=== PATIENT | male | born 1960 | race Caucasian/White ===

== ENCOUNTER 2021-11-21 09:00 | Outpatient (RCR) | payer BC, SELFPAY | END 2021-11-26 08:14 | disposition home or self-care (01) | LOC: PT.CARL 09:00 | PROVIDERS: PCP Family Medicine; Visit Provider Orthopaedic Surgery | DX: M70.62 Trochanteric bursitis, left hip (principal) | CPT/HCPCS: 97010; 97014; 97033; 97035; 97110; 97163; G0283 ==

== ENCOUNTER 2021-12-03 09:00 | Outpatient (RCR) | payer BC, SELFPAY | END 2022-01-08 14:15 | disposition home or self-care (01) | LOC: PT.CARL 09:00 | PROVIDERS: PCP Family Medicine; Visit Provider Podiatrist Foot & Ankle Surgery | DX: R20.2 Paresthesia of skin (principal); M24.572 Contracture, left ankle; M24.571 Contracture, right ankle | CPT/HCPCS: 97010; 97033; 97110; 97140; 97163 ==

== ENCOUNTER 2023-01-08 03:41 | Emergency (ER) | payer BC, SELFPAY ==
[2023-01-08] VITALS (8 sets, daily range): BP systolic 119–148; BP diastolic 48–78; PULSE 61–81; RESP 16–26; TEMP 36.6; O2SAT 90–98; BMI 35.9
--- NOTE | 2023-01-08 04:05 | CT_ITS ---
PROCEDURE INFORMATION: Exam: CT Abdomen And Pelvis With Contrast Exam date and time: 01/08/2023 4:44 AM Age: 62 years old Clinical indication: Abdominal pain; Additional info: Abd pain TECHNIQUE: Imaging protocol: Computed tomography of the abdomen and pelvis with contrast. Radiation optimization: All CT scans at this facility use at least one of these dose optimization techniques: automated exposure control; mA and/or kV adjustment per patient size (includes targeted exams where dose is matched to clinical indication); or iterative reconstruction. Contrast material: ISOVUE; Contrast volume: 75 ml; Contrast route: IV; REPORTING DATA: Count of CT and Cardiac NM exams in prior 12 months: This patient has received 0 known CTs and 0 known cardiac nuclear medicine studies in the 12 months prior to the current study. COMPARISON: No relevant prior studies available. FINDINGS: Liver: Liver is low in density. Gallbladder and bile ducts: Normal. No calcified stones. No ductal dilation. Pancreas: Normal. No ductal dilation. Spleen: Normal. No splenomegaly. Adrenal glands: Normal. No mass. Kidneys and ureters: Normal. No hydronephrosis. Stomach and bowel: Some focal areas of increased density are seen within the gastric lumen, this could represent extravasation of contrast but may simply represent radiodense ingested food. Sigmoid diverticulosis. Appendix: No evidence of appendicitis. Intraperitoneal space: Unremarkable. No free air. No significant fluid collection. Vasculature: Unremarkable. No abdominal aortic aneurysm. Lymph nodes: Unremarkable. No enlarged lymph nodes. Urinary bladder: Unremarkable as visualized. Reproductive: Unremarkable as visualized. Bones/joints: Unremarkable. No acute fracture. Soft tissues: Unremarkable. IMPRESSION: 1. No definite acute process noted. 2. Focal areas of increased opacity are seen within the gastric lumen these could represent extravasation of contrast / acute hemorrhage although they also may represent ingested radiodense food or medicines such as magnesium hydroxide etc. 3. Diffuse hepatic steatosis.
--- NOTE | 2023-01-08 04:06 | XR_ITS ---
PROCEDURE INFORMATION: Exam: XR Chest Exam date and time: 01/08/2023 4:44 AM Age: 62 years old Clinical indication: Patient HX: Upper abd pain radiating to chest; Additional info: Chest pain TECHNIQUE: Imaging protocol: Radiologic exam of the chest. Views: 1 view. COMPARISON: CT CERVICAL SPINE WO CON 08/02/2019 8:19 AM FINDINGS: Lungs: Unremarkable. No consolidation. Pleural spaces: Unremarkable. No pleural effusion. No pneumothorax. Heart/Mediastinum: Unremarkable. No cardiomegaly. Bones/joints: Unremarkable. IMPRESSION: No acute findings.
--- NOTE | 2023-01-08 04:13 | ECG_ITS ---
APPROVED REPORT Exam: Resting ECG HR:70 bpm ECG Measurements Heart Rate 70 AXES DE 180 P 51 QRSd 104 QRS 24 QT 402 T 36 QTc 423 Conclusion SINUS RHYTHM WITH SINUS ARRHYTHMIA LOW QRS VOLTAGE IN PRECORDIAL LEADS [QRS DEFLECTION < 1.0 mV IN CHEST LEADS] BORDERLINE ECG UNCONFIRMED REPORT Electronically signed by : Alexey Mariscal MD 01/09/2023 09:51:40
[2023-01-08 04:18] LABS: Basophils % 0.3 % (0.1-2.0); Eosinophils # 0.1 K/mm3 (0.0-0.4); Hematocrit 43.6 % (42.0-52.0); Hemoglobin 13.8 g/dL (14.1-18.0); Lymphocytes # 1.6 K/mm3 (0.7-4.5); Lymphocytes % 12.5 % (10-50); Mean Corpuscular HGB Conc 31.6 g/dL (31.8-35.4); Mean Corpuscular Volume 91.8 fl (80-94); Mean Platelet Volume 8.2 fl (7.4-10.4); Monocytes # 0.4 K/mm3 (0.1-1.0); Monocytes % 3.5 % (1.7-9.3); Neutrophils # 10.3 K/mm3 (1.8-7.8); Neutrophils % 82.7 % (37.0-80.0); Platelet Count 362 K/mm3 (142-424); Red Blood Count 4.75 M/mm3 (4.60-6.20); White Blood Count 12.4 K/mm3 (4.8-10.8)
[2023-01-08 04:21] LABS: Alanine Aminotransferase 390 U/L (12-78); Albumin Level 4.5 g/dl (3.5-5.0); Albumin/Globulin Ratio 1.6 (1.1-1.8); Alkaline Phosphatase 184 U/L (38-126); Amylase 84 U/L (30-110); Anion Gap 13.7 mEq/L (5-15); Aspartate Amino Transferase 477 U/L (17-59); Blood Urea Nitrogen 18 mg/dl (9-20); Calcium 9.4 mg/dl (8.4-10.2); Carbon Dioxide 32 mmol/L (22.0-30.0); Chloride 96 mmol/L (98-107); Creatinine Clearance Estimated 96 mL/min (50-200); Estimated Glomerular Filt Rate 62 ml/min (>60); GFR (African American) 75 ML/MIN (>60); Globulin 2.8 g/dL (1.3-3.2); Glucose 344 mg/dl (74-100); Lipase 162 U/L (23-300); Potassium 3.7 mmoL/L (3.5-5.1); Sodium 138 mmol/L (136-145); Total Protein,Serum 7.3 g/dl (6.3-8.2)
[2023-01-08 04:26] LABS: C-Reactive Protein 5.8 mg/L (0-4)
[2023-01-08 04:27] LABS: Lactic Acid 2.8 mmol/L (0.7-2.1)
--- NOTE | 2023-01-08 04:28 | HMH.EDABDPAI ---
Discharge Plan Disposition Patient Disposition: Home, Self-Care Chief Complaint: Abdominal Pain Prescriptions Prescriptions: No Action hydrochlorothiazide 25 mg tablet 25 mg PO DIRECTED Label Comments: TAKE 1 TABLET BY MOUTH EVERY DAY losartan 100 mg tablet 100 mg PO DIRECTED Label Comments: TAKE 1 TABLET BY MOUTH EVERY DAY metformin 500 mg tablet extended release 24 hr 500 mg PO DIRECTED Label Comments: TAKE 1 TABLET BY MOUTH EVERY DAY WITH BREAKFAST Referrals Follow up/Referrals: Provider,Referral, [Primary Care Provider] - See instructions Price Bhandari MD [Staff Physician] - See instructions Clinical Impressions Clinical Impression: Cholelithiasis Instructions Patient Instructions: DI for Gallstones Discharge ED Provider: Raman (ED),Randolph Vega Abdominal Pain HPI General Chief Complaint: Abdominal Pain Stated Complaint: Upper Abdominal Pain Time Seen by Provider: 01/08/23 04:00 Mode of Arrival: Ambulatory Source of Information: Patient and Medical Record Limitations: No Limitations Description of Symptoms (Recalled from ER Triage Doc. by RN): Pt states at 2am he started having severe upper gastric pain which he thought may be indigestion, took pepto bismol and tums with no relief. States the pain is radiating into chest and back a this time. History of Present Illness HPI narrative: acute onset of upper abd pain with nausea which started last am complaint: abdominal pain Onset (ago): hour(s) Consistency: intermittent Location: RUQ and epigastric Severity: severe Quality: sharp Radiation: RUQ Associated symptoms: denies other symptoms Treatments prior to arrival: antacids Related Data Home Medications Medication Instructions Recorded Confirmed hydrochlorothiazide 25 mg tablet 25 mg PO DIRECTED Hypertension 01/08/23 01/08/23 losartan 100 mg tablet 100 mg PO DIRECTED Cholesterol 01/08/23 01/08/23 metformin 500 mg tablet,extended 500 mg PO DIRECTED Diabetes 01/08/23 01/08/23 release 24 hr Allergies Allergy/AdvReac Type Severity Reaction Status Date / Time erythromycin base Allergy Unknown Verified 08/02/19 08:02 [From E-MYCIN] penicillin G [PENICILLIN G] Allergy Unknown Verified 08/02/19 08:02 tetracycline [TETRACYCLINE] Allergy Unknown Verified 08/02/19 08:02 [facility] Disclaimer: The information contained in this section may have been updated after the patient was seen, as this information can be updated by other users. Social History Smoking Status: Never smoker alcohol intake: never current occupational status: employed Travel in the last 8 weeks: None ROS Obtained: Yes All systems reviewed & no additional complaints except as documented Physical Exam General General appearance: alert Head Head exam: normocephalic Eye Eye exam: Present PERRL and EOMI; Absent scleral icterus ENT ENT exam: Present mucous membranes moist Neck Neck exam: Present trachea midline Respiratory Respiratory exam: Absent respiratory distress Cardiovascular Cardiovascular exam: Present regular rate; Absent systolic murmur Abdominal Exam Abdominal exam: Present soft, tenderness and Marinelli's sign; Absent guarding or rebound Abdominal tenderness: Present RUQ and moderate Neurological Exam Neurological exam: Present alert, oriented X3 and CN II-XII intact; Absent motor sensory deficit Psychiatric Psychiatric exam: Present normal affect Skin Skin exam: Absent rash Medical Decision Making Medical Records Medical records reviewed: Yes I reviewed the patient's medical records. Fabricio Inquiry Pt receiving controlled substance: No Vital Signs: 01/08/23 03:44 01/08/23 04:31 01/08/23 05:01 Temperature 98 F Temperature Source Oral Pulse Rate 77 74 Pulse Rate [Right] 72 Respiratory Rate 26 H 18 20 Blood Pressure 131/70 126/58 L Blood Pressure [Right Arm] 139/73 Blood Pressure Mean 92 82 Blood Press
--- NOTE | 2023-01-08 04:39 | PC.NURSE ---
pt to ct scan
[2023-01-08 05:38] LABS: Erythrocyte Sedimentation Rate 21 mm/hr (0-20)
--- NOTE | 2023-01-08 06:11 | US_ITS ---
FINAL REPORT CLINICAL HISTORY: elevated ast/alt, upper abd pain COMPARISON: None FINDINGS: Sonographic images of the right upper quadrant were obtained. The pancreas is partially obscured. The liver is fatty infiltrated. The portal vein is dilated to 15 mm; portal hypertension not excluded. Several stones are seen in the gallbladder. Common duct is 6 mm, within normal limits. Limited images of the right kidney are unremarkable. IMPRESSION: Cholelithiasis. Fatty liver. Somewhat dilated portal vein, portal hypertension not excluded. Reviewed, Interpreted and Dictated by Moose Esqueda III, MD Transcribed by Xochilt Moon Authenticated and [facility]
[2023-01-08 06:15] LABS: Acetone, Serum (Rapid) None Detected (None Detect)
[2023-01-08 07:01] LABS: Hemoglobin A1C 8.3 % (4.0-6.0)
--- NOTE | 2023-01-08 07:39 | PC.NURSE ---
Patient to US
[2023-01-08 07:46] LABS: Microscopic, Urine URINE MICROSCOPIC (MICROSCOPIC)
[2023-01-08 07:47] LABS: Appearance,Urine CLEAR (Clear); Bilirubin,Urine Negative (Negative); Blood, Urine Negative (Negative); Color,Urine YELLOW (Yellow); Glucose,Urine (UA) 3+ (Negative); Ketones,Urine Negative (Negative); Leukocyte Esterase,Urine Negative (Negative); Nitrate,Urine POSITIVE (Negative); Protein,Urine Negative (Negative); Specific Gravity, Urine 1.015 (1.005-1.030)
[2023-01-08 08:12] LABS: Reflex Lactic Add Lactic Reflex
[2023-01-08 08:14] LABS: Bacteria,Urine 3+ /lpf; RBC,Urine Occasional #/hpf (0-3)
--- NOTE | 2023-01-08 08:22 | PC.NURSE ---
Dr. Camargo speaking with Dr. Bhandari
== END 2023-01-08 09:01 | disposition home or self-care (01) ==
PROVIDERS: Emergency Provider Emergency Medicine
DX: K80.20 Calculus of gallbladder without cholecystitis without obstruction (principal); R10.10 Upper abdominal pain, unspecified; R74.01 Elevation of levels of liver transaminase levels; R11.0 Nausea; E11.65 Type 2 diabetes mellitus with hyperglycemia; Z79.84 Long term (current) use of oral hypoglycemic drugs; R74.02 Elevation of levels of lactic acid dehydrogenase [LDH]; B96.89 Other specified bacterial agents as the cause of diseases classified elsewhere
CPT/HCPCS: 71045; 74177; 76705; 80053; 81001; 82009; 82150; 83036; 83605; 83690; 85025; 85651; 86140; 87086; 87088; 87186; 93005; 96361; 96374; 96375; 99285; J2405; Q9967

== ENCOUNTER → 2023-01-15 10:57 | Outpatient (CLI) | payer BC, SELFPAY ==
[2023-01-15 11:28] LABS: Basophils % 0.3 % (0.1-2.0); Eosinophils # 0.1 K/mm3 (0.0-0.4); Eosinophils % 1.2 % (0.1-12.0); Hematocrit 44.4 % (42.0-52.0); Hemoglobin 14.1 g/dL (14.1-18.0); Lymphocytes # 1.1 K/mm3 (0.7-4.5); Lymphocytes % 9.7 % (10-50); Mean Corpuscular HGB Conc 31.7 g/dL (31.8-35.4); Mean Corpuscular Hemoglobin 28.9 pg (27.0-31.2); Mean Corpuscular Volume 91.2 fl (80-94); Mean Platelet Volume 7.9 fl (7.4-10.4); Monocytes # 0.4 K/mm3 (0.1-1.0); Monocytes % 3.6 % (1.7-9.3); Neutrophils # 9.9 K/mm3 (1.8-7.8); Neutrophils % 85.2 % (37.0-80.0); Platelet Count 403 K/mm3 (142-424); Red Blood Count 4.87 M/mm3 (4.60-6.20); Red Cell Distribution Width 13.1 % (11.5-17.5); White Blood Count 11.6 K/mm3 (4.8-10.8)
[2023-01-15 11:33] LABS: MANUAL DIFFERENTIAL MANUAL DIFFERENTIAL (MANUAL DIFF)
[2023-01-15 11:34] LABS: Alanine Aminotransferase 503 U/L (12-78); Albumin Level 4.3 g/dl (3.5-5.0); Albumin/Globulin Ratio 1.2 (1.1-1.8); Alkaline Phosphatase 317 U/L (38-126); Amylase 772 U/L (30-110); Anion Gap 22.6 mEq/L (5-15); Aspartate Amino Transferase 360 U/L (17-59); Bilirubin,Total 5.1 mg/dl (0.2-1.3); Blood Urea Nitrogen 67 mg/dl (9-20); Calcium 8.4 mg/dl (8.4-10.2); Carbon Dioxide 23 mmol/L (22.0-30.0); Chloride 90 mmol/L (98-107); Creatine Kinase 55 U/L (55-170); Estimated Glomerular Filt Rate 9 ml/min (>60); GFR (African American) 10 ML/MIN (>60); Globulin 3.5 g/dL (1.3-3.2); Glucose 223 mg/dl (74-100); Potassium 3.6 mmoL/L (3.5-5.1); Sodium 132 mmol/L (136-145); Total Protein,Serum 7.8 g/dl (6.3-8.2)
[2023-01-15 11:45] LABS: CKMB Relative Index 0.9 U/L (0-4.0); Creatine Kinase MB 0.5 ng/ml (0.0-2.03)
[2023-01-15 11:54] LABS: Troponin I < 0.01 ng/ml (0.00-0.034)
[2023-01-15 12:01] LABS: Lipase 16401 U/L (23-300)
[2023-01-15 13:30] LABS: Lymphocytes % 9 % (10-50); Monocytes % 5 % (2-9); Neutrophils % 86 % (42-76); Platelet Estimate Normal; RBC Morphology Normal; Total Cells Counted 100
== END ==
PROVIDERS: Visit Provider Surgery
DX: Z01.812 Encounter for preprocedural laboratory examination (principal); K80.20 Calculus of gallbladder without cholecystitis without obstruction
CPT/HCPCS: 36415; 80053; 82150; 82550; 82553; 83690; 84484; 85007; 85025

== ENCOUNTER 2025-01-18 09:20 | Outpatient (CLI) | payer OTHER, SELFPAY ==
[2025-01-18 17:55] LABS: Alanine Aminotransferase 85 U/L (12-78); Albumin Level 4.8 g/dl (3.5-5.0); Albumin/Globulin Ratio 2.0 (1.1-1.8); Alkaline Phosphatase 122 U/L (38-126); Anion Gap 23.5 mEq/L (5-15); Aspartate Amino Transferase 39 U/L (17-59); Bilirubin,Total 0.6 mg/dl (0.2-1.3); Blood Urea Nitrogen 24 mg/dl (9-20); Calcium 9.8 mg/dl (8.4-10.2); Carbon Dioxide 22 mmol/L (22.0-30.0); Chloride 98 mmol/L (98-107); Cholesterol 209 mg/dl (140-200); Creatinine,Serum 1.20 mg/dl (0.66-1.25); Estimated Glomerular Filt Rate 61 ml/min (>60); GFR (African American) 74 ML/MIN (>60); Globulin 2.4 g/dL (1.3-3.2); Glucose 125 mg/dl (74-100); HDL Cholesterol 42 mg/dl (40-60); Potassium 4.5 mmoL/L (3.5-5.1); Sodium 139 mmol/L (136-145); Total Protein,Serum 7.2 g/dl (6.3-8.2); Triglycerides 121 mg/dl (30-150)
[2025-01-18 18:24] LABS: Thyroid Stimulating Hormone 2.31 uIU/mL (0.465-4.68)
[2025-01-18 19:42] LABS: Hepatitis C Ab Qual. W/ RFX NEGATIVE (Negative)
--- OUTSIDE RECORDS SUMMARY | 2025-01-19 10:05 | XMS_ITS | Clinical Summary ---
Author Organization Healthcare Address [address] [place] [address] Care Team Providers Care Auto Tire Recapper Name Role Phone Mikie Mata Primary Care Provider [phone] Allergies Active Allergy Reactions Criticality Noted Date Comments Erythromycin Hives Medium 12/26/2015 Hydrocodone-Acetaminophen Itching Medium 01/20/2023 Penicillins Hives Medium 12/26/2015 Tetracyclines & Related Hives Medium 12/26/2015 Medications hydroCHLOROthia zide (HYDRODiuril) 25 MG tablet Take 1 tablet (25 mg) by mouth 1 (one) time each day. Active losartan (Cozaar) 100 MG tablet Take 1 tablet (100 mg) by mouth 1 (one) time each day. Active metFORMIN XR (Glucophage-XR) 500 MG 24 hr tablet Take 2 tablets (1,000 mg) by mouth 2 (two) times a day. Do not crush, chew, or split. Active famotidine (Pepcid) 20 MG tablet Take 1 tablet (20 mg) by mouth 1 (one) time each day. Active methocarbamol (Robaxin) 500 MG tablet Take 1 tablet (500 mg) by mouth 4 (four) times a day for 10 days. 40 tablet 01/21/2023 Active Active Problems Problem Noted Date Diagnosed Date Hyperglycemia 01/17/2023 Overview (01/17/2023): On SSI Anemia 01/17/2023 Overview (01/17/2023): POA Stable, will continue to monitor Complicates all aspects of care CHRISTAL (obstructive sleep apnea) 01/16/2023 Gastroesophageal reflux disease 01/16/2023 HTN (hypertension) 01/15/2023 Overview (01/15/2023): Complicates care Obesity (BMI 30.0-34.9) 01/15/2023 Overview (01/15/2023): Complicates care Diabetes mellitus, type 2 01/15/2023 Overview (01/15/2023): Complicates care Resolved Problems Problem Noted Date Diagnosed Date Resolved Date Acute kidney injury 01/17/2023 01/22/20 Overview (01/17/2023): IV fluids, PO intake Will continue to monitor Gallstone pancreatitis 01/15/202301/21 Overview (01/15/2023): -Consult GI for ERCP -cholecystectomy post ERCP -trend labs Transaminitis 01/15/2023 01/21/2023 Overview (01/15/2023): Trend labs Hyponatremia 01/15/2023 01/21/2023 Overview (01/15/2023): Trend labs Choledocholithiasis 01/15/2023 01/22/20 Family History Medical History Relation Name Comments Alcohol abuse Mother Shahla Anesthesia problems Neg Hx Malig Hyperthermia Neg Hx Relation Name Status Comments Mother Shahla Social History Tobacco Use Types Packs/Day Years Used Date Smoking Tobacco: Never Smokeless Tobacco: Never Tobacco Cessation:Counseling Given: Not Answered Alcohol Use Standard Drinks/Week Comments Not Currently 0 (1 standard drink = 0.6 oz pur e alcohol) PHQ-2 Answer Date Recorded Patient Health Questionnaire-2 Score 0 03/13/2023 PHQ-2A Answer Date Recorded Patient Health Questionnaire-2 Score 0 03/13/2023 Sex and Gender Information Value Date Recorded Sex Assigned at Male 01/20/2023 2:12 PM EDT Legal Sex Male 8:46 PM EDT Gender Identity Male 01/20/2023 2:12 PM EDT Sexual Orientation Not on file Last Filed Vital Signs Vital Sign Reading Time Taken Comments Blood Pressure 118/76 04/25/2023 9:45 AM EDT Pulse 58 04/25/2023 9:45 AM EDT Temperature 36.3 C (97.4 F) 04/25/2023 9:00 AM EDT Respiratory Rate 13 04/25/2023 9:45 AM EDT Oxygen Saturation 99% 04/25/2023 9:45 AM EDT Inhaled Oxygen Concentration - - Weight 97.7 kg (215 lb 6.2 oz) 04/25/2023 8:02 A M EDT Height 172.7 cm (5' 8 ) 04/25/2023 8:02 AM EDT Body Mass Index 32.75 04/25/2023 8:02 AM EDT Plan of Treatment Health Maintenance Due Date Last Done Comments [facility]-/Child/Adol SDOH Screenings 1962 Diabetes: Dental Exam 1972 [facility]- SDOH Screenings 1980 [facility]-Adult SDOH Screenings 1980 [facility]-DTaP,Tdap,and Td Vaccines (1 - Tdap) 1981 CT Colonography 2007 Colonoscopy 2007 FIT-DNA 2007 FIT 2007 FOBT 2007 Sigmoidoscopy 2007 [facility]-Colorectal Cancer Screening 2007 [facility]-Diabetes: Hemoglobin A1C 11/12/2021 05/15/2021 [facility]-Pneumococcal Vaccine: 50+ Years (2 of 2 - PCV) 01/30/2022 01/30/2021 [facility]-Depression Screening 03/13/2024 03/13/2023 [id number]-42 Vaccine ( - 2023- season) 2024 06/21/2021, 10/26/2020, 09/28/2020 [facility]-Influenza Vaccine (#1) 03/14/202507/10, 05/02/2021, 06/15/2020, Additional history exists [facility]-RSV Vaccine: 60+ Years or (1 - 1-dose 75+ series) 2037 [facility]-Zoster Vaccines Completed 08/10/2021, [facility]-HIV Screening Completed 01/15/2023 [facility]-Hepatitis C Screening Completed 01/15/2023, [facility]-Obesity Intervention Completed 03/13/2023 HPV Vaccines Aged Out No longer eligi ble based on patient's age to complete this topic [facility]-HIB Vaccines Aged Out No longer e ligible based on patient's age to complete this topic [facility]-Hepatitis A Vaccines Aged Out No longer eligible based on patient's age to complete this topic [facility]-IPV Vaccines Aged Out No longer e ligible based on patient's age to complete this topic [facility]-Rotavirus Vaccines Aged Out No lo nger eligible based on patient's age to complete this topic Medical Devices Implanted Type Area Pharmaceutical Engineer Device Identifier Shelf Expiration Date Model / Serial / Lot Stent Biliary Covered 10 X 40 Wallflex - [id number] Implanted:Qty: 1 on 01/16/2023 by Wang Stacy MD at [facility] [id number] 09/25/2024 [id number] / / [id number] Stent Zimmon 7fr X 7cm - [id number] Implanted:Qty: 1 on 01/16/2023 by Wang Stacy MD at [facility] [id number] 09/11/2025 [id number] / / [id number] Procedures Procedure Name Priority Date/Time Associated Diagnosis Comments HEPATITIS C ANTIBODY - ED W/REFLEX TO HCV QUANT PCR STAT 01/15/2023 2:41 PM EDT HIV 1/2 ANTIBODY/ANTIGEN SCREEN WITH REFLEX TO HIV I/II DIFFERENTIATION STAT 01/15/2023 2:41 PM EDT from Last 3 Months or Most Recently Relevant to Health Maintenance Results * HIV 1 & 2 Antibody/Antigen Screen (01/15/2023 2:41 PM EDT) HIV 1 & 2 Antibody/Antigen Screen Non Reactive Non Reactive 01/15/2023 5:17 PM EDT [facility] Comment:Screening for HIV 1 & 2 antibodies, and P24 antigen is NONREACTIVE. No confirmatory testing is required. Blood Venous blood specimen / Unknown Venipuncture / Unknown 01/15/2023 2:41 PM EDT 01/15/2023 2:50 PM EDT Julio Zamora MD LAB BLOOD ORDERABLES Final Result Performing Organization Address City/[facility]/ZIP Co de Phone Number [facility] [address] [place] [address] * Hepatitis C Antibody - ED (01/15/2023 2:41 PM EDT) Hepatitis C Antibody Negative Negative 01/15/2023 3:45 PM EDT [facility] Blood Venous blood specimen / Unknown Venipuncture / Unknown 01/15/2023 2:41 PM EDT 01/15/2023 3:00 PM EDT Julio Zamora MD LAB BLOOD ORDERABLES Final Result Performing Organization Address City/[facility] Co de Phone Number [facility] [address] [place] [address] from Last 3 Months or Most Recently Relevant to Health Maintenance Insurance ANTH Advance Directives * Full Code (Latest Code Status on File) Date Activated Date Inactivated Comments 01/15/2023 6:37 PM 01/21/2023 5:02 PM Question Answer Comments Patient has decision-making capacity? Yes Care Teams Auto Tire Recapper Relationship Specialty Start Date End Date Mikie Mata DO [address] [address] PCP - General 01/15/23
[2025-01-20 08:13] LABS: Hepatitis B Surface Antigen Negative (Negative)
== END 2025-01-18 23:59 | disposition home or self-care (01) ==
LOC: LAB.DROPOF 01-19 09:56
PROVIDERS: PCP Family Medicine; Visit Provider Family Medicine
DX: E11.9 Type 2 diabetes mellitus without complications (principal); I10 Essential (primary) hypertension; Z11.59 Encounter for screening for other viral diseases; Z11.4 Encounter for screening for human immunodeficiency virus [HIV]
CPT/HCPCS: 80053; 80061; 84443; 86803; 87340; 87389

== ENCOUNTER 2025-01-19 14:20 | Outpatient (CLI) | payer OTHER, SELFPAY ==
--- OUTSIDE RECORDS SUMMARY | 2025-01-19 14:22 | XMS_ITS | Clinical Summary ---
Author Organization Healthcare Address [address] [place] [address] Care Team Providers Care Braid Folder Name Role Phone Mikie Mata Primary Care Provider [phone] Allergies Active Allergy Reactions Criticality Noted Date [...] PCV) 01/30/2022 01/30/2021 [facility]-Depression Screening 03/13/2024 03/13/2023 [id number] Vaccine ( - 2023- season) 2024 06/21/2021, [...] this topic Medical Devices Implanted Type Area Side Stapler Device Identifier Shelf Expiration Date Model / Serial / Lot Stent Biliary Covered 10 X 40 Wallflex - [id number] Implanted:Qty: 1 on 01/16/2023 by Wang Stacy MD at [facility] [id number] 09/25/2024 [id number] / / [id number] Stent Zimmon 7fr X 7cm - [id number] Implanted:Qty: 1 on 01/16/2023 by Wang Stacy MD at [facility] [id number] 09/11/2025 [id number] / / [id number] Procedures Procedure Name Priority Date/Time Associated Diagnosis [...] Reactive Non Reactive 01/15/2023 5:17 PM EDT [facility] Comment:Screening for HIV 1 & 2 antibodies, and P24 antigen is NONREACTIVE. No confirmatory testing is required. Blood Venous blood specimen / Unknown Venipuncture / Unknown 01/15/2023 2:41 PM EDT 01/15/2023 2:50 PM EDT Julio Zamora MD LAB BLOOD ORDERABLES Final Result Performing Organization Address City/[facility]/ZIP Co de Phone Number [facility] [address] [place] [address] * Hepatitis C Antibody - ED (01/15/2023 2:41 PM EDT) Hepatitis C Antibody Negative Negative 01/15/2023 3:45 PM EDT [facility] Blood Venous blood specimen / Unknown Venipuncture / Unknown 01/15/2023 2:41 PM EDT 01/15/2023 3:00 PM EDT Julio Zamora MD LAB BLOOD ORDERABLES Final Result Performing Organization Address City/[facility] Co de Phone Number [facility] [address] [place] [address] from Last 3 Months or Most Recently Relevant to Health Maintenance Insurance ANTH Advance Directives * Full Code (Latest Code Status on File) Date Activated Date Inactivated Comments 01/15/2023 6:37 PM 01/21/2023 5:02 PM Question Answer Comments Patient has decision-making capacity? Yes Care Teams Braid Folder Relationship Specialty Start Date End Date Mikie Mata DO [address] [address] PCP - General 01/15/23
--- NOTE | 2025-01-19 14:27 | XR_ITS ---
FINAL REPORT CLINICAL HISTORY: low back pain COMPARISON: None FINDINGS: 3 views of the lumbar spine were obtained. There is no evidence of fracture. There is no malalignment. The vertebrae are normal in height. There is moderate disc space narrowing at L5-S1. Mild anterior osteophyte formation is noted L1-2 through L4-5. There is moderate facet sclerosis in the lower lumbar spine. No paraspinous soft tissue abnormalities identified. IMPRESSION: Degenerative/chronic changes without acute bony abnormality. Reviewed, Interpreted and Dictated by Ty Wiley MD Transcribed by Xochilt Moon Authenticated and [facility]
[2025-01-19 15:17] LABS: Hematocrit 41.3 % (42.0-52.0); Hemoglobin 14.1 g/dL (14.1-18.0); Immature Granulocytes % 0.3 %; Mean Corpuscular HGB Conc 34.1 g/dL (31.8-35.4); Mean Corpuscular Hemoglobin 29.7 pg (27.0-31.2); Mean Corpuscular Volume 86.9 fl (80-94); Nucleated Red Blood Cells % 0 %; Platelet Count 289 K/mm3 (142-424); Red Blood Count 4.75 M/mm3 (4.60-6.20); Red Cell Distribution Width-SD 38.8 fL; White Blood Count 8.8 K/mm3 (4.8-10.8)
[2025-01-19 17:04] LABS: Hemoglobin A1C 8.9 % (4.0-6.0)
== END 2025-01-19 23:59 | disposition home or self-care (01) ==
LOC: RAD 14:20
PROVIDERS: PCP Family Medicine; Visit Provider Family Medicine
DX: M51.360 Other intervertebral disc degeneration, lumbar region with discogenic back pain only (principal); E11.9 Type 2 diabetes mellitus without complications; I10 Essential (primary) hypertension
CPT/HCPCS: 36415; 72100; 83036; 85025

== ENCOUNTER 2025-02-13 10:15 | Emergency (ER) | payer OTHER, SELFPAY ==
[2025-02-13] VITALS (13 sets, daily range): BP systolic 94–144; BP diastolic 55–77; PULSE 113–127; RESP 13–27; TEMP 37.2; O2SAT 91–96; BMI 35.2
--- OUTSIDE RECORDS SUMMARY | 2025-02-13 10:33 | XMS_ITS | Clinical Summary ---
Author Organization Healthcare Address [address] [place] [address] Care Team Providers Care Door Fitter Name Role Phone Mikie Mata Primary Care Provider [phone] Allergies Active Allergy Reactions Criticality Noted Date [...] PCV) 01/30/2022 01/30/2021 [facility]-Depression Screening 03/13/2024 03/13/2023 [id number] Vaccine ( - 2023- season) 2024 06/21/2021, [...] this topic Medical Devices Implanted Type Area Painter Interior Finish Device Identifier Shelf Expiration Date Model / Serial / Lot Stent Biliary Covered 10 X 40 Wallflex - [id number] Implanted:Qty: 1 on 01/16/2023 by Wang Stacy MD at [facility] [id number] 09/25/2024 [id number] / / [id number] Stent Zimmon 7fr X 7cm - [id number] Implanted:Qty: 1 on 01/16/2023 by Wang Stacy MD at [facility] [id number] 09/11/2025 [id number] / / [id number] Procedures Procedure Name Priority Date/Time Associated Diagnosis [...] Reactive Non Reactive 01/15/2023 5:17 PM EDT [facility] Comment:Screening for HIV 1 & 2 antibodies, and P24 antigen is NONREACTIVE. No confirmatory testing is required. Blood Venous blood specimen / Unknown Venipuncture / Unknown 01/15/2023 2:41 PM EDT 01/15/2023 2:50 PM EDT Julio Zamora MD LAB BLOOD ORDERABLES Final Result Performing Organization Address City/[facility]/ZIP Co de Phone Number [facility] [address] [place] [address] * Hepatitis C Antibody - ED (01/15/2023 2:41 PM EDT) Hepatitis C Antibody Negative Negative 01/15/2023 3:45 PM EDT [facility] Blood Venous blood specimen / Unknown Venipuncture / Unknown 01/15/2023 2:41 PM EDT 01/15/2023 3:00 PM EDT Julio Zamora MD LAB BLOOD ORDERABLES Final Result Performing Organization Address City/[facility] Co de Phone Number [facility] [address] [place] [address] from Last 3 Months or Most Recently Relevant to Health Maintenance Insurance ANTH Advance Directives * Full Code (Latest Code Status on File) Date Activated Date Inactivated Comments 01/15/2023 6:37 PM 01/21/2023 5:02 PM Question Answer Comments Patient has decision-making capacity? Yes Care Teams Door Fitter Relationship Specialty Start Date End Date Mikie Mata DO [address] [address] PCP - General 01/15/23
--- OUTSIDE RECORDS SUMMARY | 2025-02-13 10:33 | XMS_ITS | Clinical Summary ---
[facility] Address [address] [place] [address] Care Team Providers Care Director Dietetics Department Name Role Phone Mikie Mata Primary Care Provider [phone] Allergies Active Allergy Reactions Criticality Noted Date Comments Erythromycin Hives Medium 12/26/2015 Hydrocodone-Acetaminophen Itching Medium 01/20/2023 Penicillins Hives Medium 12/26/2015 Tetracyclines & Related Hives Medium 12/26/2015 Medications aspirin 81 MG chewable tablet Chew 1 tablet Daily. Active famotidine (PEPCID) 20 MG tablet Take 1 tablet by mouth Daily. Active clotrimazole-bet amethasone (Lotrisone) 1-0.05 % creamIndications :Rash of foot Apply 1 Application topically to the appropriate area as directed 2 (Two) Times a Day. 45 g 1 4 Active losartan (COZAAR) 100 MG tabletIndication s:Essential hypertension Take 1 tablet by mouth Daily. 90 tablet 3 4 Active hydroCHLOROthiaz sekou 25 MG tabletIndication s:Primary hypertension,Hyp ertension, unspecified type Take 1 tablet by mouth Daily. 90 tablet 1 5 Active meloxicam (MOBIC) 15 MG tabletIndication s:Trochanteric bursitis of left hip 1 PO Daily with food. 90 tablet 1 5 Active Active Problems Problem Noted Date Diagnosed Date Healthcare maintenance 10/01/2022 Cramps of left lower extremity 08/10/2021 Conjunctival hemorrhage of left eye 08/10/2021 Left hip pain 05/25/2021 Shortness of breath 05/25/2021 Plantar fasciitis 01/30/2021 Type 2 diabetes mellitus wit h hypoglycemia without coma, with long-term current use of insulin 01/30/2021 Skin lesion 01/30/2021 Gastroesophageal reflux disease without esophagi tis 01/30/2021 Allergic rhinitis 04/08/2017 Obesity 04/08/2017 Benign prostatic hyperplasia 12/26/2015 Hyperlipidemia 12/26/2015 Hypertension 12/26/2015 Obstructive sleep apnea syndrome 12/26/2015 Osteoarthritis of hip 12/26/2015 Type 2 diabetes, diet controlled 12/26/2015 Resolved Problems Problem Noted Date Diagnosed Date Resolved Date Hypertensive urgency 05/16/2021 021 Chest pain 05/15/2021 05/16/2021 Immunizations Immunization Administration Dates Next Due COVID-19 (MODERNA) 1st,2nd,3 rd Dose Monovalent 06/21/2021,10/26/2020,09/28/2020 COVID-19 (UNSPECIFIED) 06/21/2021,10/26/2020, Flu Vaccine Intradermal Quad 18-64YR 05/02/2021, 06/15/2020,04/26/2019 Flu Vaccine Quad PF 6-35MO 05/02/2021 Flu Vaccine Quad PF >36MO 06/15/2020 Fluzone (or Fluarix & Flulav al for VFC) >6mos 05/05/2023,07/10/2022,06/14/2020 Influenza Injectable Mdck Pf Quad 07/10/2022,,04/26/2019 Influenza Split Preservative Free ID 07/10/2022 Influenza, Unspecified 05/02/2021,04/26/2019 Pneumococcal Conjugate 20-Valent (PCV20) 024 Pneumococcal Polysaccharide (PPSV23) 01/30/2021 Shingrix 08/10/2021,05/08/2021 Family History Medical History Relation Name Comments COPD Brother Timothy Viera Cancer Father Oren Viera Lung cancer Father Oren Viera No Known Problems Maternal Grandfather No Known Problems Maternal Grandmother Arthritis Mother Shahla Viera Cancer Mother Shahla Viera Diabetes type II Mother Shahla Viera Lung cancer Mother Shahla Viera No Known Problems Paternal Grandfather No Known Problems Paternal Grandmother Relation Name Status Comments Brother Timothy Viear Alive Father Oren Viera Maternal Grandfather Maternal Grandmother Mother Shahla Viera Paternal Grandfather Paternal Grandmother Social History Tobacco Use Types Packs/Day Years Used Date Smoking Tobacco: Never Passive Smoke Exposure: Never Smokeless Tobacco: Never Alcohol Use Standard Drinks/Week Comments Not Currently 1 (1 standard drink = 0.6 oz pur e alcohol) occasional wine PHQ-2 Answer Date Recorded Retired PHQ-9: Brief Depression Severity Measure Score 0 08/28/2022 Abuse Screen Answer Date Recorded Unsafe at Home or Work/School Not on file Feels Threatened by Someone? Not on file 03/2023 Does Anyone Keep You from Co ntacting Others or Doint Things Outside the Home? Not on file 04/21/2023 Physical Sign of Abuse Present Not on file 1 Housing Stability Answer Date Recorded Current Living Arrangements Not on file 03/2023 Potentially Unsafe Housing Conditions Not on janeth e 04/21/2023 Family and Community Support Answer Bo e Recorded Help with Day-to-Day Activities Not on file 04/21/2023 Lonely or Isolated Not on file 04/21/2023 Employment Answer Date Recorded Do you want help finding or keeping work or a cassidy b? Not on file 04/21/2023 Disabilities Answer Date Recorded Concentrating, Remembering, or Making Decisions Difficulty Not on file 04/21/2023 Doing Errands Independently Difficulty Not on fi le 04/21/2023 Education Answer Date Recorded Help with school or training? Not on file Preferred Language Not on file 04/21/2023 PHQ-2 Answer Date Recorded Retired PHQ-9: Brief Depression Severity Measure Score 0 09/05/2023 Sex and Gender Information Value Date Recorded Sex Assigned at Not on file Legal Sex Male 10:14 AM EDT Gender Identity Not on file Sexual Orientation Not on file Last Filed Vital Signs Vital Sign Reading Time Taken Comments Blood Pressure 122/78 02/25/2024 10:38 AM EDT Pulse 60 02/25/2024 10:38 AM EDT Temperature 37 C (98.6 F) 02/25/2024 10:38 AM EDT Respiratory Rate 16 06/29/2021 10:06 AM EST Oxygen Saturation 99% 02/25/2024 10:38 AM EDT Inhaled Oxygen Concentration - - Weight 97 kg (213 lb 12.8 oz) 02/25/2024 10:38 A M EDT Height 171.5 cm (5' 7.5 ) 02/25/2024 10:38 AM ED T Body Mass Index 32.99 02/25/2024 10:38 AM EDT Plan of Treatment Health Maintenance Due Date Last Done Comments TDAP/TD VACCINES (1 - Tdap) 1981 COLON CANCER SCREENING [address] Y[address] SIG[address] COLONOGRAPHY 2007 FECAL OCCULT BLOOD TEST 2007 FIT Testing (1 year) 2007 DIABETIC EYE EXAM 11/03/2018 11/03/2017 (Declined) COLONOSCOPY 02/23/2024 09/07/2010, 07/14/2010 COVID-19 Vaccine (2023-2 5 season) 2024 06/21/2021, 06/21/2021, 10/26/2020, Additional history exists COLORECTAL CANCER SCREENING 06/01/2024 HEMOGLOBIN A1C 08/27/2024 02/25/2024, 08/15, 05/05/2023, Additional history exists LIPID PANEL 09/05/2024 09/05/2023, 11/0 09/2020, 07/10/2020, Additional history exists ANNUAL PHYSICAL 02/24/2025 02/25/2024 DIABETIC FOOT EXAM 02/24/2025 02/25/2024, 0 12/25/2018, 12/25/2018, Additional history exists URINE MICROALBUMIN-CREATININ E RATIO (uACR) 02/24/2025 02/25/2024, 11/03/2017 INFLUENZA VACCINE 04/13/2025 05/05/2023, , 07/10/2022, Additional history exists COLOGUARD 05/31/2027 05/31/2024, 02/21/2021 ZOSTER VACCINE Completed 08/10/2021, 05/08/2021 HEPATITIS C SCREENING Completed 01/15/2023 , 11/03/2017, 11/03/2017 Pneumococcal Vaccine 50+ Completed 02/25/2024, 01/12 Procedures Procedure Name Priority Date/Time Associated Diagnosis Comments COLOGUARD Routine 05/31/2024 4:50 PM EST Encounter for colorectal cancer screening POCT GLYCOSYLATED HEMOGLOBIN (HGB A1C) Routine 02/25/2024 10:48 AM EDT Type 2 diabetes mellitus without complication, without long-term current use of insulin LIPID PANEL Routine 09/05/2023 9:48 AM EST Elevated lipoprotein(a) SCANNED - INFLUENZA 07/10/2022 HEPATITIS C ANTIBODY Routine 11/03/2017 9:53 AM EDT Need for hepatitis C screening test HM COLONOSCOPY Routine 09/07/2010 from Last 3 Months or Most Recently Relevant to Health Maintenance Results * Cologuard - Stool, Per Rectum (05/31/2024 4:50 PM EST) Cologuard Negative Negative 06/09/2024 9:10 AM EST [facility] (CLIA #:[id number]) Comment: NEGATIVE TEST RESULT. A negative Cologuard result indicates a low likelihood that a colorectal cancer (CRC) or advanced adenoma (adenomatous polyps with more advanced pre-malignant features) is present. The chance that a person with a negative Cologuard test has a colorectal cancer is less than 1 in 1500 (negative predictive value >99.9%) or has an advanced adenoma is less than 5.3% (negative predictive value 94.7%). These data are based on a prospective cross-sectional study of 10,000 individuals at average risk for colorectal cancer who were screened with both Cologuard and colonoscopy. (Linda Herrera al, N Engl J Med 2014;370(14):0166-7028) The normal value (reference range) for this assay is negative. COLOGUARD RE-SCREENING RECOMMENDATION: Periodic colorectal cancer screening is an important part of preventive healthcare for asymptomatic individuals at average risk for colorectal cancer. Following a negative Cologuard result, the [place] [employer] and U.S. Multi-Society Task Force screening guidelines recommend a Cologuard re-screening interval of 3 years. References: [place] [employer] Guideline for Colorectal Cancer Screening: https://www.cancer.org/cancer/lkzrf-vpjqek-dbpgak/jgyilwfme-twugnmqvt-uotsvsx/ac s-rec ommendations.html.; Alek AYON, Alisha KATHLEEN, Cleopatra SidhuK, Colorectal Cancer Screening: Recommendations for Physicians and Patients from the U.S. Multi-Society Task Force on Colorectal Cancer Screening , Am J Gastroenterology 2017; 112:9398-7675. TEST DESCRIPTION: Composite algorithmic analysis of stool DNA-biomarkers with hemoglobin immunoassay. Quantitative values of individual biomarkers are not reportable and are not associated with individual biomarker result reference ranges. Cologuard is intended for colorectal cancer screening of adults of either sex, 45 years or older, who are at average-risk for colorectal cancer (CRC). Cologuard has been approved for use by the U.S. FDA. The performance of Cologuard was established in a cross sectional study of average-risk adults aged 50-84. Cologuard performance in patients ages 45 to 49 years was estimated by sub-group analysis of near-age groups. Colonoscopies performed for a positive result may find as the most clinically significant lesion: colorectal cancer [4.0%], advanced adenoma (including sessile serrated polyps greater than or equal to 1cm diameter) [20%] or non- advanced adenoma [31%]; or no colorectal neoplasia [45%]. These estimates are derived from a prospective cross-sectional screening study of 10,000 individuals at average risk for colorectal cancer who were screened with both Cologuard and colonoscopy. (Linda Rogers et al, N Engl J Med 2014;370(14):6092-7962.) Cologuard may produce a false negative or false positive result (no colorectal cancer or precancerous polyp present at colonoscopy follow up). A negative Cologuard test result does not guarantee the absence of CRC or advanced adenoma (pre-cancer). The current Cologuard screening interval is every 3 years. ([place] [employer] and U.S. Multi-Society Task Force). Cologuard performance data in a 10,000 patient pivotal study using colonoscopy as the reference method can be accessed at the following location: www.Crack.TastemakerX/results. Additional description of the Cologuard test process, warnings and precautions can be found at www.cologuard.com. Stool specimen (specimen) Specimen from rectum / Unknown 05/31/2024 4:50 PM EST 06/02/2024 9:27 AM EST Mikie Mata DO BODY FLUIDS AND STOOLS ORDERABLE S Final Result [facility] (CLIA #:[id number]) [address] [place] [address], * (ABNORMAL) POC Glycosylated Hemoglobin (Hb A1C) (02/25/2024 10:48 AM EDT) Pathologist [facility] Hemoglobin A1C 5.9(A) 4.5 - 5.7 % [facility] Lot Number [id number] [facility] Expiration Date 05/24/2024 [facility] Blood 02/25/2024 10:4 8 AM EDT Mikie Mata DO POINT OF CARE TEST ORDERABLES Fi nal Result [facility]
[address] [place] [address], * (ABNORMAL) Lipid Panel (09/05/2023 9:48 AM EST) Total Cholesterol 179 0 - 200 mg/dL 09/05/2023 7:38 PM [facility] Triglycerides 127 0 - 150 mg/dL 09/05/2023 7:38 PM EST [facility] HDL Cholesterol 39(L) 40 - 60 mg/dL 09/05/2023 7:38 PM [facility] LDL Cholesterol 117(H) 0 - 100 mg/dL 09/05/2023 7:38 PM EST [facility] VLDL Cholesterol 23 5 - 40 mg/dL 09/05/2023 7:38 PM EST [facility] LDL/HDL Ratio 2.94 09/05/2023 7:38 PM [facility] Blood Venipuncture / Unknown 09/05/2023 9:48 AM EST 09/05/2023 9:48 AM EST Narrative [facility] - 09/05/2023 7:38 PM EST Cholesterol Reference Ranges (U.S. Department of Health and Human Services ATP III Classifications) Desirable <200 mg/dL Borderline High 200-239 mg/dL High Risk >240 mg/dL Triglyceride Reference Ranges (U.S. Department of Health and Human Services ATP III Classifications) Normal <150 mg/dL Borderline High 150-199 mg/dL High 200-499 mg/dL Very High >500 mg/dL HDL Reference Ranges (U.S. Department of Health and Human Services ATP III Classifications) Low <40 mg/dl (major risk factor for CHD) High >60 mg/dl ('negative' risk factor for CHD) LDL Reference Ranges (U.S. Department of Health and Human Services ATP III Classifications) Optimal <100 mg/dL Near Optimal 100-129 mg/dL Borderline High 130-159 mg/dL High 160-189 mg/dL Very High >189 mg/dL Mikie Mata DO LAB BLOOD ORDERABLES Final Resul t [facility]
[address] [place] [address], * SCANNED - INFLUENZA (07/10/2022) Mikie Mata DO CHART REVIEW TABS Final Resul t * Hepatitis C Antibody (11/03/2017 9:53 AM EDT) Hepatitis C Ab Non-Reacti ve Non-Reacti ve 11/03/2017 3:30 PM EDT [facility] Blood Left upper arm structure / Unknown Venipuncture / Unknown 11/03/2017 9:53 AM EDT 11/03/2017 9:53 AM EDT Lars Arciniega MD LAB BLOOD ORDERABLES Final Re sult [facility]
[address] [place] [address], * COLONOSCOPY (09/07/2010) Colonoscopy 09/07/2010 repeat 5-10 yrs us Historical Provider MD HEALTH MAINTENANCE Final Result from Last 3 Months or Most Recently Relevant to Health Maintenance [place] [address] [place] [address] EMPLOYEE Advance Directives * CPR (Attempt to Resuscitate) (Latest Code Status on File) Date Activated Date Inactivated Comments 05/15/2021 6:33 PM 05/16/2021 7:49 PM Question Answer Comments Code Status (Patient has no pulse and is not breathing): CPR (Attempt to Resuscitate) Medical Interventions (Patie nt has pulse or is breathing): Full Support Level Of Support Discussed With: Patient Care Teams Director Dietetics Department Relationship Specialty Start Date End Date Mikie Mata DO [address] [place] [id number] PCP - General Family Medicine 01/30/21
--- NOTE | 2025-02-13 11:30 | HMH.EDGENADL ---
Discharge Plan Disposition Patient Disposition: Xfer Short-Term Hosp Condition: Fair Prescriptions Prescriptions: No Action omeprazole 10 mg capsule,delayed release(DR/EC) 10 mg PO DAILY glucosamine-chondroitin 900 mg tablet PO meloxicam 15 mg tablet 15 mg PO DAILY PRN Patient Comments: TAKE 1 TABLET BY MOUTH EVERY DAY WITH FOOD metformin 500 mg tablet extended release 24 hr 500 mg PO DAILY Qty: 30 3RF hydrochlorothiazide 25 mg tablet 25 mg PO DIRECTED Patient Comments: TAKE 1 TABLET BY MOUTH EVERY DAY losartan 100 mg tablet 100 mg PO DIRECTED Patient Comments: TAKE 1 TABLET BY MOUTH EVERY DAY Referrals Follow up/Referrals: Provider,Referral, [Primary Care Provider, Medical] - See instructions Clinical Impressions Clinical Impression: Choledocholithiasis Stand Alone Forms Stand Alone Forms: Transfer Record - ED Instructions Patient Instructions: DI for Acute Abdominal Pain Print Language Print Language: [place] Discharge ED Provider: Lilia Mai General Adult HPI General Chief complaint: Abdominal Pain Stated complaint: n/v/dizzy Time Seen by Provider: 02/13/25 10:29 Mode of Arrival: EMS Description of Symptoms (Recalled from ER Triage Doc. by RN): EMS was called out for pt with abdominal pain. EMS reports that when they got on scene the pt c/o severe abdominal pain, vomiting and tremors. EMS states that enroute the pt continued to vomit and was given Zofran 4mg IV. pt hx of hypertension. pt reports that his abdominal pain started yesterday morning. Pt states that the pain continued to get worse and when he was getting ready for tenriism pt reports I couldn't stand it anymore . History of Present Illness HPI narrative: Patient is a 64-year-old gentleman who presented to the emergency department with abdominal pain vomiting and nausea. Patient states that his symptoms started yesterday, he is having a constant bilateral abdominal pain. Patient denies any back pain. Patient reports nausea and 1 episode of vomiting. Patient has not had any fevers. Patient has not had any chest pain or shortness of breath. Patient reports some urinary frequency but denies any other symptoms. Patient does have a history of gallbladder removal has had biliary stents placed and removed at [facility]. Patient states that his pain is currently 7 out of 10 but was 10+ on arrival. Patient denies any other significant medical problems. Related Data Home Medications ?Medication ?Instructions ?Recorded ?Confirmed hydrochlorothiazide 25 mg tablet 25 mg PO DIRECTED Hypertension 01/08/23 01/18/25 losartan 100 mg tablet 100 mg PO DIRECTED Cholesterol 01/08/23 01/18/25 omeprazole 10 mg capsule,delayed 10 mg PO DAILY GERD 01/10/23 01/18/25 release meloxicam 15 mg tablet 15 mg PO DAILY PRN 07/21/24 01/18/25 antiarthritic combination no.2 900 mg PO 01/18/25 01/18/25 mg tablet (glucosamine-chondroitin) Previous Rx's ?Medication ?Instructions ?Recorded metformin 500 mg tablet,extended 500 mg PO DAILY #30 tabs 01/20/25 release 24 hr Allergies Allergy/AdvReac Type Severity Reaction Status Date / Time erythromycin base (From Allergy Unknown Verified 01/18/25 08:43 E-MYCIN) penicillin G (PENICILLIN G) Allergy Unknown Verified 01/18/25 08:43 tetracycline (TETRACYCLINE) Allergy Unknown Verified 01/18/25 08:43 acetaminophen (From Lortab) AdvReac Mild Nausea Verified 01/18/25 08:43 hydrocodone (From Lortab) AdvReac Mild Nausea Verified 01/18/25 08:43 [facility] Disclaimer: The information contained in this section may have been updated after the patient was seen, as this information can be updated by other users. Medical History (Updated 02/13/25 @ 15:36 by Gabriel Gonzalez RN) Hypertension Diabetes mellitus History of pancreatitis Chronic low back pain History of diabetes mellitus History of hypertension Surgical History History of cholecystectomy History of surgical removal of ganglion cyst Family History Other Family history of cancer Social History Smoking Status: Never smoker alcohol intake: never substance use type: denies use current occupational status: employed Travel in the last 8 weeks?: None Have you lived/traveled outside [place] in past 30 days?: No Contact w/someone who lives/traveled outside US past 30 days?: No Exposure to someone with infectious disease in past 14 days?: No Do you have a fever (greater than 100.4 F or 38 C)?: No Have you tested positive for COVID-19?: No Exposed to someone with COVID-19 in past 14 days?: No Do you have a sore throat?: No Do you have a cough?: No Do you have any weakness?: No Do you have any diarrhea?: Yes Are you experiencing any unusual bleeding?: No Do you have any muscle aches/pain?: No Do you have any abdominal pain?: Yes Are you experiencing loss of taste or smell?: No Other Medical History Have you received the Flu Vaccine for this season: Yes Have you received the Pneumonia Vaccine: Yes ROS Obtained: Yes All systems reviewed & no additional complaints except as documented and Yes Systems reviewed as appropriate & no additional complaints except as documented Physical Exam General General appearance: alert and in no apparent distress Head Head exam: atraumatic, normocephalic and normal inspection Eye Eye exam: Present normal appearance, PERRL and EOMI; Absent scleral icterus ENT ENT exam: Present normal exam and normal external ear exam Neck Neck exam: Present normal inspection and full ROM Chest Chest inspection: Present normal inspection and symmetric chest wall rise Respiratory Respiratory exam: Present normal lung sounds bilaterally; Absent respiratory distress or wheezes Cardiovascular Cardiovascular exam: Present regular rate, normal rhythm and normal heart sounds Abdominal Exam Abdominal exam: Present soft, distention and tenderness (bilateral midline abdominal tenderness); Absent guarding or rebound Extremities Exam Extremities exam: Present normal inspection and full ROM Back Exam Back exam: Present normal inspection and full ROM Neurological Exam Neurological exam: Present alert and oriented X3 Psychiatric Psychiatric exam: Present normal affect and normal mood Skin Skin exam: Present warm and dry Medical Decision Making Medical Records Screening: Per USPSTF and CDC recommendations, given the prevalence of disease in our region, it is our hospital?s policy to screen for HIV and viral Hepatitis for all patients aged 18 and over and those with ongoing risk factors. Fabricio Inquiry Pt receiving controlled substance: No Vital Signs: 02/13/25 10:23 02/13/25 10:30 02/13/25 10:31 Temperature 98.9 F Temperature Source Oral Pulse Rate 113 H 118 H Pulse Rate [Right] 116 H Respiratory Rate 15 22 Blood Pressure 141/76 H 141/77 H Blood Pressure [Right Arm] 141/76 H Blood Pressure Mean [Right Arm] 97 Blood Pressure Source [Right Arm] Automatic Cuff Blood Pressure Position [Right Arm] Supine 02 Sat by Pulse Oximetry 94 L 94 L 95 Oxygen Delivery Method Room Air 02/13/25 11:00 02/13/25 11:30 02/13/25 12:00 Temperature Temperature Source Pulse Rate 120 H 117 H 124 H Pulse Rate [Right] Respiratory Rate 20 23 13 Blood Pressure 144/73 H 124/65 130/71 Blood Pressure [Right Arm] Blood Pressure Mean [Right Arm] Blood Pressure Source [Right Arm] Blood Pressure Position [Right Arm] 02 Sat by Pulse Oximetry 96 96 91 L Oxygen Delivery Method 02/13/25 12:30 02/13/25 13:00 02/13/25 13:30 Temperature Temperature Source Pulse Rate 127 H 119 H 121 H Pulse Rate [Right] Respiratory Rate 18 20 14 Blood Pressure 102/64 L 114/60 119/61 Blood Pressure [Right Arm] Blood Pressure Mean [Right Arm] Blood Pressure Source [Right Arm] Blood Pressure Position [Right Arm] 02 Sat by Pulse Oximetry 92 L 93 L 94 L Oxygen Delivery Method 02/13/25 14:00 02/13/25 14:30 02/13/25 15:00 Temperature Temperature Source Pulse Rate 119 H 121 H Pulse Rate [Right] Respiratory Rate 27 H 22 15 Blood Pressure 94/55 L 103/60 L 96/60 L Blood Pressure [Right Arm] Blood Pressure Mean [Right Arm] Blood Pressure Source [Right Arm] Blood Pressure Position [Right Arm] 02 Sat by Pulse Oximetry 92 L 94 L Oxygen Delivery Method 02/13/25 15:27 Temperature 98.9 F Temperature Source Pulse Rate 121 H Pulse Rate [Right] Respiratory Rate 22 Blood Pressure 96/60 L Blood Pressure [Right Arm] Blood Pressure Mean [Right Arm] Blood Pressure Source [Right Arm] Blood Pressure Position [Right Arm] 02 Sat by Pulse Oximetry Oxygen Delivery Method Lab Data Lab results reviewed: Yes I reviewed the patient's lab results. Lab Results 02/13/25 10:24: WBC 8.3, RBC 4.68, Hgb 13.8 L, Hct 41.6 L, MCV 88.9, MCH 29.5, MCHC 33.2, RDW 12.6, Plt Count 259, MPV 10.3, Neut % (Auto) 96.6 H, Lymph % (Auto) 2.4 L, [place] % (Auto) 0.5 L, Eos % (Auto) 0.1, Baso % (Auto) 0.2, Neut # (Auto) 8.0 H, Lymph # (Auto) 0.2 L, [place] # (Auto) 0.0 L, Eos # (Auto) 0.0, Baso # (Auto) 0.0, Total Counted 100, Neutrophils % (Manual) 96 H, Lymphocytes % (Manual) 4 L, Platelet Estimate Normal, RBC Morphology Normal, Sodium 133 L, Potassium 3.6, Chloride 100, Carbon Dioxide 23, Anion Gap 13.6, BUN 19, Creatinine 1.40 H, Estimated Creat Clear 77, Estimated GFR 51 L, Est GFR ( Amer) 62, Glucose 208 H, Lactate 3.0 H, Calcium 9.4, Total Bilirubin 6.3 H, Direct Bilirubin 4.5 H, AST 523 H*, ALT 1093 H*, Alkaline Phosphatase 232 H, Total Protein 7.0, Albumin 3.6, Globulin 3.4 H, Albumin/Globulin Ratio 1.1, Lipase 58, Acetaminophen < 10 L 02/13/25 12:51: A. baumannii (PCR) Not detected, Bacteroides fragilis Not detected, Tanesha albicans (PCR) Not detected, Tanesha auris (PCR) Not detected, C. glabrata (PCR) Not detected, C. krusei (PCR) Not detected, C. parapsilosis (PCR) Not detected, C. tropicalis (PCR) Not detected, Cryptococcus neoformans PCR Not detected, Enterobacterales (PCR) Detected, Enterococc faecalis PCR Not detected, Enterococc faecium PCR Not detected, E. coli (PCR) Detected, H. influenzae DNA Not detected, Klebsiella aerogenes (PCR) Not detected, Klebsiella oxytoca PCR Not detected, K. pneumoniae group (PCR) Not detected, List. monocytogenes PCR Not detected, N. meningitidis (PCR) Not detected, Proteus species (PCR) Not detected, Salmonella spp. (PCR) Not detected, Serratia marcescens PCR Not detected, Staphylococcus sp PCR Not detected, Staph aureus (PCR) Not detected, mecA/C & MREJ Resist Gene Not applicable, mecA/C-Methicil Resis Gene Not applicable, Staph epidermidis (PCR) Not detected, Staph lugdunensis (TEM-PCR) Not detected, S. maltophilia (PCR) Not detected, Streptococcus sp PCR Not detected, S.agalactiae Grp B STEVEN Not detected, Strep pneumoniae (PCR) Not detected, S. pyogenes GrpA STEVEN Not detected, P. aeruginosa (PCR) Not detected, Gilbert/B-Vanco Res Genes Not applicable, blaIMP Car res Gene PCR Not detected, KPC-Carbap Res Gene PCR Not detected, blaNDM Car Res Gene PCR Not detected, OXA-48 Carbapenem Resis Gene (PCR) Not detected, blaVIM Car Res Gene PCR Not detected, CTX-M Gene Resistance (PCR) Not detected, MCR-1 Resistance Gene Not detected 02/13/25 13:26: Urine Color [place], Urine Appearance Clear, Urine pH 6.5, Ur Specific [place] 1.010, Urine Protein 1+ A, Urine Glucose (UA) Negative, Urine Ketones Trace, Urine Blood Negative, Urine Nitrate Negative, Urine Bilirubin 3+ A, Urine Urobilinogen 2.0, Ur Leukocyte Esterase Negative, Urine RBC None, Urine WBC Occasional, Ur Squamous Epith Cells 5-10, Ur Transition Epith Cell Occ, Urine Bacteria None 02/13/25 10:24 02/13/25 10:24 Orders (Tests/Meds): ED MEDICATIONS Discontinued Medications Generic Name Dose Route Start Last Admin Trade Name Freq PRN Reason Stop Dose Admin Sodium Chloride 1,000 mls @ 999 mls/hr 02/13/25 11:31 02/13/25 11:48 Sod Chlor 0.9% 1000ml Bag IV 02/13/25 12:31 999 mls/hr .Q1H1M ONE Administration Cefepime HCl 2 gm/ Sodium 100 mls @ 200 mls/hr 02/13/25 12:28 02/13/25 13:24 Chloride IV 02/13/25 12:57 200 mls/hr ONCE ONE Administration Metronidazole 500 mg in 100 mls @ 100 mls/hr 02/13/25 12:28 02/13/25 14:28 Flagyl 500mg/100ml Ivpb IV 02/13/25 13:27 100 mls/hr ONCE ONE Administration Iopamidol 75 ml 02/13/25 12:12 02/13/25 12:13 Iopamidol-370 (76%);100ml Bottle IV 02/13/25 12:13 75 ml ONCE ONE Administration Morphine Sulfate 4 mg 02/13/25 11:31 02/13/25 11:48 Morphine 4mg/Ml Syringe IV 02/13/25 11:32 4 mg ONCE ONE Administration Ondansetron HCl 4 mg 02/13/25 11:31 02/13/25 11:48 Ondansetron 4mg/2ml Vial IV 02/13/25 11:32 4 mg ONCE ONE Administration Sodium Chloride 10 ml 02/13/25 12:12 02/13/25 12:13 Sodium Chloride 0.9% 10ml Syr (Rad Only) IV 02/13/25 12:13 10 ml ONCE ONE Administration ORDERS Category Date Time Status CT abdomen pelvis w con Stat Cat Scan 02/13/25 11:31 Completed Acetaminophen Stat Lab 02/13/25 10:24 Completed Bilirubin,Direct Stat Lab 02/13/25 10:24 Completed Complete Blood Count Auto Diff Stat Lab 02/13/25 10:24 Completed Comprehensive Metabolic Panel Stat Lab 02/13/25 10:24 Completed Lactic Acid Stat Lab 02/13/25 10:24 Completed Lipase Stat Lab 02/13/25 10:24 Completed UA [Urinalysis and Microscopic] Stat Lab 02/13/25 13:26 Completed Blood Culture Stat Micro 02/13/25 12:51 Results ECG Data Tracing #1: I reviewed this ECG and interpreted as documented below: Sinus tachycardia without acute ST or T wave changes concerning for ischemia Medical Decision Narrative: Patient is a 64-year-old gentleman with a past medical history of biliary stents with removal in 2022 previous cholecystectomy who presented to the emergency department with bilateral abdominal pain. On arrival, patient was tachycardic borderline hypotensive, afebrile vital signs otherwise unremarkable. On exam, patient had bilateral middle abdominal tenderness no CVA tenderness. Exam was otherwise unremarkable. Differential includes but not limited to bowel obstruction, choledocholithiasis, cholangitis, intra-abdominal abscess, appendicitis, diverticulitis, amongst others.Patient's labs were reviewed and interpreted by myself, patient had no leukocytosis, hemoglobin was stable. Patient's CMP was notable for significantly elevated bilirubin of 6.3, direct bilirubin of 4.5, significant elevated LFTs AST of 523, ALT of 1093 alk phos of 232. Patient CT scan of the abdomen showed concern for dilated common bile duct of 1.2 cm. Patient continued to have abdominal pain was given morphine Zofran. Patient was given IV fluids given tachycardia patient was covered empirically with concern for cholangitis versus choledocholithiasis with cefepime and Flagyl given his allergy to penicillin. Given that we do not have ultrasound and/or GI capabilities, GI was consulted given that patient has previous biliary stents done at . Patient was accepted to the ED via transfer by Dr. Franz. Critical Care Critical Care Time Critical Care Time: No
--- NOTE | 2025-02-13 11:31 | CT_ITS ---
PROCEDURE INFORMATION: Exam: CT Abdomen And Pelvis With Contrast Exam date and time: 02/13/2025 12:16 PM Age: 64 years old Clinical indication: Abdominal pain; Additional info: Abd pain. HX of stent placed in pancreas. Cholecystectomy. TECHNIQUE: Imaging protocol: Computed tomography of the abdomen and pelvis with contrast. Radiation optimization: All CT scans at this facility use at least one of these dose optimization techniques: automated exposure control; mA and/or kV adjustment per patient size (includes targeted exams where dose is matched to clinical indication); or iterative reconstruction. Contrast material: ISOVUE; Contrast volume: 75 ml; Contrast route: IV; COMPARISON: CT ABDOMEN PELVIS W CON 01/08/2023 4:44 AM FINDINGS: Lungs: Opacities in both lower lobes may represent atelectasis or pneumonia. Liver: Hepatomegaly 18 cm Gallbladder and biliary ducts: Pneumobilia. Cholecystectomy. Intrahepatic ductal dilatation. The common duct is prominent. It measures 12 millimeters. This may be due to post cholecystectomy state and elderly status. However, if biliary obstruction is suspected clinically, recommend further evaluation Pancreas: Normal. No ductal dilation. Spleen: Normal. No splenomegaly. Adrenal glands: Normal. No mass. Kidneys and ureters: There is no evidence of renal or ureteral calcifications. Subcentimeter low attenuation areas in both kidneys are too small for characterization. Stomach and bowel: Diverticulosis of the rectosigmoid. No diverticulitis . No obstruction Appendix: Normal appendix Intraperitoneal space: Unremarkable. No free air. No significant fluid collection. Vasculature: Unremarkable. No abdominal aortic aneurysm. Lymph nodes: Unremarkable. No enlarged lymph nodes. Urinary bladder: Unremarkable as visualized. Reproductive: Unremarkable as visualized. Bones/joints: Unremarkable. No acute fracture. Soft tissues: Unremarkable. IMPRESSION: Opacities in both lower lobes may represent atelectasis or pneumonia.
--- NOTE | 2025-02-13 11:40 | ECG_ITS ---
APPROVED REPORT Exam: Resting ECG HR:120 bpm ECG Measurements Heart Rate 120 AXES AZ 183 P 54 QRSd 113 QRS 81 QT 314 T -3 QTc 385 Conclusion SINUS TACHYCARDIA POSSIBLE INFERIOR MYOCARDIAL INFARCTION , PROBABLY OLD [30 ms Q WAVE IN II/aVF] ABNORMAL RHYTHM ECG UNCONFIRMED REPORT Electronically signed by : JOSELYN HARRISON, 02/15/2025 04:20:52
[2025-02-13 11:42] LABS: Hematocrit 41.6 % (42.0-52.0); Hemoglobin 13.8 g/dL (14.1-18.0); Immature Granulocytes % 0.2 %; Mean Corpuscular HGB Conc 33.2 g/dL (31.8-35.4); Mean Corpuscular Hemoglobin 29.5 pg (27.0-31.2); Mean Corpuscular Volume 88.9 fl (80-94); Nucleated Red Blood Cells % 0 %; Platelet Count 259 K/mm3 (142-424); Red Blood Count 4.68 M/mm3 (4.60-6.20); Red Cell Distribution Width-SD 40.8 fL; White Blood Count 8.3 K/mm3 (4.8-10.8)
[2025-02-13] MEDS: MORPHINE 4MG/ML SYRINGE 4 MG IV (11:48)
[2025-02-13] MEDS: ONDANSETRON 4MG/2ML VIAL 4 MG IV (11:48)
[2025-02-13] MEDS: 0.9 % SODIUM CHLORIDE 1000ML 1,000 ML 999 ML IV (11:48)
[2025-02-13 11:52] LABS: Albumin Level 3.6 g/dl (3.5-5.0); Chloride 100 mmol/L (98-107); Potassium 3.6 mmoL/L (3.5-5.1); Sodium 133 mmol/L (136-145)
[2025-02-13 11:54] LABS: Blood Urea Nitrogen 19 mg/dl (9-20); Creatinine Clearance Estimated 77 mL/min (50-200); Creatinine,Serum 1.40 mg/dl (0.66-1.25); Estimated Glomerular Filt Rate 51 ml/min (>60); GFR (African American) 62 ML/MIN (>60); Lipase 58 U/L (23-300)
[2025-02-13 11:55] LABS: Albumin/Globulin Ratio 1.1 (1.1-1.8); Alkaline Phosphatase 232 U/L (38-126); Anion Gap 13.6 mEq/L (5-15); Aspartate Amino Transferase 523 U/L (17-59); Bilirubin,Total 6.3 mg/dl (0.2-1.3); Calcium 9.4 mg/dl (8.4-10.2); Carbon Dioxide 23 mmol/L (22.0-30.0); Globulin 3.4 g/dL (1.3-3.2); Glucose 208 mg/dl (74-100); Total Protein,Serum 7.0 g/dl (6.3-8.2)
[2025-02-13] MEDS: IOPAMIDOL-370 (76%);100ML BOTTLE 75 ML IV (12:13)
[2025-02-13] MEDS: SODIUM CHLORIDE 0.9% 10ML SYR (RAD ONLY) 10 ML IV (12:13)
[2025-02-13 12:21] LABS: Alanine Aminotransferase 1093 U/L (12-78)
--- NOTE | 2025-02-13 12:46 | PC.NURSE ---
Called [facility] to obtain records per , they said they will have them sent here soon.
[2025-02-13 13:03] LABS: RBC Morphology Normal; Total Cells Counted 100
[2025-02-13] MEDS: CEFEPIME HCL 2 GM in 0.9 % SODIUM CHLORIDE 100 ML IV (13:24)
--- NOTE | 2025-02-13 13:32 | PC.NURSE ---
Called [facility] back regarding records, they asked if i could send them a facesheet and that they would send those records now.
[2025-02-13 14:06] LABS: Color,Urine ORANGE (Yellow); Glucose,Urine (UA) Negative (Negative); Ketones,Urine TRACE (Negative); Leukocyte Esterase,Urine Negative (Negative); Microscopic, Urine URINE MICROSCOPIC (MICROSCOPIC); PH,Urine 6.5 (5.0-8.5); Protein,Urine 1+ (Negative); Specific Gravity, Urine 1.010 (1.005-1.030); Urobilinogen,Urine 2.0 EU/dl (0.2)
[2025-02-13 14:09] LABS: Bilirubin,Urine 3+ (Negative)
[2025-02-13 14:23] LABS: WBC,Urine Occasional #/hpf (0-3)
[2025-02-13 14:24] LABS: Transitional Epi Cells,Urine OCC #/lpf (0-3)
[2025-02-13] MEDS: METRONIDAZ/SOD CHL 500 MG/100 ML PIGGYBACK 100 MG IV (14:28)
--- NOTE | 2025-02-13 14:29 | PC.NURSE ---
Records were just received. I am now calling [facility] for a patient transfer.
--- NOTE | 2025-02-13 14:33 | PC.NURSE ---
[facility] will call back as soon as the attending is ready to talk.
--- NOTE | 2025-02-13 14:36 | PC.NURSE ---
on phone with
[2025-02-13 14:57] LABS: Bilirubin,Direct 4.5 mg/dl (0.0-0.4)
--- NOTE | 2025-02-13 14:59 | PC.NURSE ---
report called to [facility]
--- NOTE | 2025-02-13 15:00 | PC.NURSE ---
call made to [facility] for pt transport to [facility] ED for common bile duct obstruction.
[2025-02-13 15:01] LABS: Acetaminophen < 10 ug/ml (10-30)
[2025-02-13 15:37] LABS: Reflex Lactic Add Lactic Reflex
[2025-02-14 09:30] LABS: Acinetobacter calcoaceticus-ba Not Detected; Bacteroides fragilis Not Detected; CTX-M Not Detected; Candida auris Not Detected; Candida glabrata Not Detected; Enterobacterales Detected; Enterococcus faecalis Not Detected; Enterococcus faecium Not Detected; IMP Not Detected; KPC Not Detected; Klebsiella aerogenes Not Detected; Klebsiella pneumoniae grp Not Detected; NDM Not Detected; OXA-48-like Not Detected; Proteus spp. Not Detected; Salmonella spp. Not Detected; Serratia marcescens Not Detected; Staphylococcus epidermidis Not Detected; Staphylococcus lugdunensis Not Detected; Staphylococcus spp. Not Detected; Stenotrophomonas maltophilia Not Detected; Streptococcus agalactiae(GrpB) Not Detected; Streptococcus pyogenes Group A Not Detected; Streptococcus spp. Not Detected; VIM Not Detected; mcr-1 Not Detected
--- NOTE | 2025-02-14 09:38 | PC.NURSE ---
Blood culture results faxed to [facility].
--- NOTE | 2025-03-02 17:46 | PC.NURSE ---
pts final blood culture results faxed to [facility] as the pt was transferred there.
== END 2025-02-13 15:20 | disposition short-term general hospital (02) ==
PROVIDERS: Emergency Provider Student in an Organized Health Care Education/Training Program
DX: K80.50 Calculus of bile duct without cholangitis or cholecystitis without obstruction (principal)
CPT/HCPCS: 74177; 80053; 80329; 81001; 82248; 83605; 83690; 85007; 85025; 85027; 87040; 87077; 87154; 87186; 93005; 96361; 96365; 96367; 96375; 99285; J0692; J1836; J2270; J2405; J7030; Q9967

== ENCOUNTER 2025-04-18 11:30 | Outpatient (CLI) | payer OTHER, SELFPAY ==
--- OUTSIDE RECORDS SUMMARY | 2025-03-31 07:56 | XMS_ITS | Encounter Summary ---
Author Organization Healthcare Address [address] [place] [address] Care Team Providers Care Water Treatment Plant Repairer Name Role Phone System, Provider Not In MD Primary Care Provider Unavailable Reason for Referral * Imaging (Routine) - Closed Specialty Diagnoses / Procedures Referred By Angelica ferrari Referred To Contact Gastroenterology Diagnoses Common bile duct dilation Procedures ERCP 1 - Grade 1 Nader Soto [address] [place] [address] Phone: tel: fax: Referral ID Status Reason Start Date Expiration Date V isits Requested Visits Authorized [id number] Closed Specialty Services Required 02/21/2025 08/23/2026 1 1 Reason for Visit * Imaging (Routine) - Closed Specialty Diagnoses / Procedures Referred By Angelica ferrari Referred To Contact Gastroenterology Diagnoses Common bile duct dilation Procedures ERCP 1 - Grade 1 Soto Doe [address] [place] [address] Phone: tel: fax: Referral ID Status Reason Start Date Expiration Date V isits Requested Visits Authorized [id number] Closed Specialty Services Required 02/21/2025 08/23/2026 1 1 Encounter Details Date Type Department Care Team (Latest Contact Info) Description 03/31/2025 7:56 AM EDT - 03/31/2025 9:00 AM EDT Hospital Encounter [facility] Endoscopy [address] [place] [address] Soto Doe [address] [place] [address] Common bile duct dilation Discharge Disposition: Home or Self Care Social History Tobacco Use Types Packs/Day Years Used Date Smoking Tobacco: Never Smokeless Tobacco: Never Alcohol Use Standard Drinks/Week Comments Not Currently 0 (1 standard drink = 0.6 oz pur e alcohol) PHQ-2 Answer Date Recorded Patient Health Questionnaire-2 Score 0 03/13/2023 Humiliation, Afraid, Rape, and Kick questionnair e Answer Date Recorded Within the last year, have y ou been afraid of your partner or ex-partner? No 02/14/2025 Within the last year, have y ou been humiliated or emotionally abused in other ways by your partner or ex-partner? No Within the last year, have y ou been kicked, hit, slapped, or otherwise physically hurt by your partner or ex-partner? No 02/14/2025 Within the last year, have y ou been raped or forced to have any kind of sexual activity by your partner or ex-partner? No 02/14/2025 Overall Financial Resource Strain (CARDIA) Answe r Date Recorded How hard is it for you to pa y for the very basics like food, housing, medical care, and heating? Not very hard 02/14/2025 Hunger Vital Sign Answer Date Recorded Within the past 12 months, y ou worried that your food would run out before you got the money to buy more. Never true 02/15/20 25 Within the past 12 months, t he food you bought just didn't last and you didn't have money to get more. Never true 02/14/2025 PRAPARE - Transportation Answer Date Re corded In the past 12 months, has l ack of transportation kept you from medical appointments or from getting medications? No 10/2024 In the past 12 months, has l ack of transportation kept you from meetings, work, or from getting things needed for daily living? No 02/14/2025 Housing Stability Vital Sign Answer Bo e Recorded In the last 12 months, was t here a time when you were not able to pay the mortgage or rent on time? No 02/14/2025 In the past 12 months, how m any times have you moved where you were living? 0 02/14/2025 At any time in the past 12 m [facility], were you homeless or living in a senior care (including now)? No 02/14/2025 Utilities Answer Date Recorded In the past 12 months has e electric, gas, oil, or water company threatened to shut off services in your home? No 02/14/2025 PHQ-2A Answer Date Recorded Patient Health Questionnaire-2 Score 0 03/13/2023 Sex and Gender Information Value Date Recorded Sex Assigned at Male 01/20/2023 2:12 PM EDT Legal Sex Male 8:46 PM EDT Gender Identity Male 01/20/2023 2:12 PM EDT Sexual Orientation Not on file documented as of this encounter Last Filed Vital Signs Vital Sign Reading Time Taken Comments Blood Pressure 121/73 03/31/2025 10:25 AM EDT Pulse 54 03/31/2025 10:25 AM EDT Temperature 36.3 C (97.3 F) 03/31/2025 9:55 AM EDT Respiratory Rate 13 03/31/2025 10:25 AM EDT Oxygen Saturation 98% 03/31/2025 10:25 AM EDT Inhaled Oxygen Concentration - - Weight 101 kg (223 lb 5.2 oz) 03/31/2025 8:16 AM EDT Height 170.2 cm (5' 7 ) 03/31/2025 8:16 AM EDT Body Mass Index 34.98 03/31/2025 8:16 AM EDT documented in this encounter Functional Status * Are you deaf or do you have serious difficulty hearing? Answer Date of Assessment Author No 01/21/2023 2:19 PM EDT Linden Guzman RN * Are you blind or do you have serious difficulty seeing, even when wearing glasses? Answer Date of Assessment Author No 01/21/2023 2:19 PM EDT Linden Guzman RN * Do you have serious difficulty walking or climbing stairs? Answer Date of Assessment Author No 01/21/2023 2:19 PM EDT Linden Guzman RN * Do you have serious difficulty dressing or bathing? Answer Date of Assessment Author No 01/21/2023 2:19 PM EDT Linden Guzman RN * Because of a physical, mental, or emotional condition, do you have serious difficulty doing errandsalone such as visiting the doctor? Answer Date of Assessment Author No 01/21/2023 2:19 PM EDT Linden Guzman RN documented as of this encounter Mental Status * Because of a physical, mental, or emotional condition, do you have serious difficulty concentrating, remembering, or making decisions? (5 years old or older) Answer Entry Date Author No 01/21/2023 2:19 PM EDT Linden Guzman RN documented in this encounter Medications at Time of Discharge acetaminophen (Tylenol) 500 MG tablet Take 1 tablet by mouth every 6 hours. 100 tablet 02/17/2025 Boswellia-Glucosa mine-Vit D (OSTEO BI-FLEX ONE PER DAY PO) Take 1 tablet by mouth daily. hydroCHLOROthiazi de (HYDRODiuril) 25 MG tablet Take 1 tablet by mouth every morning. losartan (Cozaar) 100 MG tablet Take 1 tablet by mouth every morning. meloxicam (Mobic) 15 MG tablet Take 1 tablet by mouth daily as needed for mild pain or moderate pain. metFORMIN XR (Glucophage-XR) 500 MG 24 hr tablet Take 1 tablet by mouth daily with breakfast. Do not crush, chew, or split. omeprazole (PriLOSEC) [address] capsule Take 1 capsule by mouth every morning. Do not crush or chew. polyethylene glycol (Miralax) 17 g packet Take 17 g by mouth daily as needed (Take as needed for constipation). 14 packet 5 02/17/2025 senna (Senokot) 8.6 MG tablet Take 2 tablets by mouth 2 times a day as needed for constipation. 28 tablet 02/17/2025 documented as of this encounter Miscellaneous Notes * H&P - Jay Doeitij - 03/31/2025 9:30 AM EDT Gastroenterology, Hepatology and Nutrition Pre-Endoscopy History & Physical Patient: Mohan Viera Date of : 1960 Attending: No att. providers found Date of Visit: March 31, 2025 Chief Complaint/Reason for Visit: Choledocholithiasis History of Present Illness: Mr. Mohan Viera is a 64 y.o. male here today for ERCP. He has a past medical history of Diabetes mellitus (CMS/HCC), GERD (gastroesophageal reflux disease), Hypertension, Pancreatitis, and Sleep apnea. Anticoagulation and antiplatelet medications: none Last dose: not applicable Prior abdominal surgeries: CCY Prior endoscopy: ERCP ROS: Gen: No fever, chills. GI: No abdominal pain, nausea, vomiting, constipation, diarrhea, GI bleeding, dysphagia. Allergies[1] Current Outpatient Medications Medication Instructions acetaminophen (TYLENOL) 500 mg, Oral, Every 6 hours Bkcdwobjj-Wpwncediuqr-Snf D (OSTEO BI-FLEX ONE PER DAY PO) 1 tablet, Daily hydroCHLOROthiazide (HYDRODIURIL) 25 mg, Every morning losartan (COZAAR) 100 mg, Every morning meloxicam (MOBIC) 15 mg, Daily PRN metFORMIN XR (GLUCOPHAGE-XR) 500 mg, Daily with breakfast omeprazole (PRILOSEC) 20 mg, Every morning polyethylene glycol (MIRALAX) 17 g, Oral, Daily PRN senna (SENOKOT) 17.2 mg, Oral, 2 times daily PRN Past Medical History[2] Surgical History[3] Family History[4] Social History[5] Physical Exam: General appearance: patient in no distress Eyes: anicteric Lungs: non-labored breathing Heart: regular rate Abdomen: abdomen soft Neuro: alert, awake and oriented x 3 Laboratory/Imaging/Pathology: No results for input(s): HGB , PLT , APTT , INR , PTT , BILITOT , BILIDIR in the last 72 hours. Assessment & Plan: Mr. Mohan Viera is a 64 y.o. male here today for ERCP. Choledocholithiasis Biliary stent in place Plan: - Proceed with ERCP - The risks, benefits, potential complications, limitations and alternatives to the procedure were discussed with the patient. The informed consent was signed by myself and the patient. [1] Allergies Allergen Reactions Erythromycin Hives Penicillins Hives Tetracyclines & Related Hives [2] Past Medical History: Diagnosis Date Diabetes mellitus (CMS/HCC) GERD (gastroesophageal reflux disease) Hypertension Pancreatitis Sleep apnea [3] Past Surgical History: Procedure Laterality Date CHOLECYSTECTOMY ERCP [4] Family History Problem Relation Name Age of Onset Alcohol abuse Mother Shahla Lung cancer Mother Shahla Lung cancer Father Anesthesia problems Neg Hx Malig Hyperthermia Neg Hx [5] Social History Socioeconomic History Marital status: Tobacco Use Smoking status: Never Smokeless tobacco: Never Vaping Use Vaping status: Never Used Substance and Sexual Activity Alcohol use: Not Currently Drug use: Never Sexual activity: Yes Partners: Female control/protection: Male Sterilization Other Topics Concern Occupational Exposure No Social Drivers of Health Financial Resource Strain: Low Risk (02/14/2025) Overall Financial Resource Strain (CARDIA) Difficulty of Paying Living Expenses: Not very hard Food Insecurity: No Food Insecurity (02/14/2025) Hunger Vital Sign Worried About Running Out of Food in the Last Year: Never true Ran Out of Food in the Last Year: Never true Transportation Needs: No Transportation Needs (02/14/2025) PRAPARE - Transportation Lack of Transportation (Medical): No Lack of Transportation (Non-Medical): No Social Connections: Unknown (04/21/2023) Received from [facility] Family and Community Support Help with Day-to-Day Activities: Not on file Lonely or Isolated: Not on file Intimate Partner Violence: Not At Risk (02/14/2025) Humiliation, Afraid, Rape, and Kick questionnaire Fear of Current or Ex-Partner: No Emotionally Abused: No Physically Abused: No Sexually Abused: No Housing Stability: Low Risk (02/14/2025) Housing Stability Vital Sign Unable to Pay for Housing in the Last Year: No Number of Times Moved in the Last Year: 0 Homeless in the Last Year: No * Moose Kang RN - 03/31/2025 8:29 AM EDT Images from the original note were not included. [id number] Recovery After Procedural Sedation (Adult) You have been given medicine by vein to make you sleep during your procedure. This may have included both a pain medicine and sleeping medicine. You may have side effects, such as nausea, fatigue, orunsteadiness for up to 24 hours. You may also feel lightheaded. Some medical conditions, such as seizure disorders, spinal cord injuries, and some metabolic conditions, may change what your care needs are. If you have a medical condition, talk with your doctor about whether your care after the procedure might change. Home care Follow these guidelines when you get home: ? For the next 8 or more hours, ask a trusted adult to watch over you. This person should make sureyour condition is not getting worse, watch for problems, and keep you safe. ? Don't drink any alcohol for the next 24 hours. ? Don't drive, operate dangerous machinery, or make important business or personal decisions duringthe next 24 hours. ? Take extra care when walking and moving, You may be at a higher risk of falling. ? Follow any instructions you were given for eating and drinking. ? Be sure to follow all after-care directions. Note: Your doctor may tell you not to take any medicine by mouth for pain or sleep in the next 4 hours. These medicines may react with the medicines you were given in the hospital. This could cause amuch stronger response than usual. Follow-up care Follow up with your doctor as advised. When to contact your doctor Have someone contact your doctor or seek medical care right away if: ? Your drowsiness gets worse. ? Your weakness or dizziness gets worse. ? You have repeated vomiting. ? Your speech is slurred, and others can't understand you. ? You have severe or ongoing pain from the procedure that's not eased by the pain medicine (if prescribed). ? You have a fever. ? You have a new rash. Call 911 Have someone call 911 if: ? You have trouble breathing. ? You have trouble swallowing. ? You have chest pain. ? You lose consciousness or you can't be awakened. Last Reviewed Date: 2023 00:00:00 ?? [id number] [employer]. All rights reserved. This information is not intended as a substitute for professional medical care. Always follow your healthcare professional's instructions. * Sarita BowieMARILU - Moose Abad RN - 03/31/2025 8:29 AM EDT Images from the original note were not included. [id number] Endoscopy Unit: Caring for Yourself after an Endoscopic Retrograde Cholangiopancreatography (ERCP) What precautions do I need to take after my procedure? You will get a medicine that makes you sleep during treatment. It may affect you for the next 24 hours. ? Do not drive or go home alone. Someone must be with you until you get home. ? For 24 hours, do not make legal decisions, drive, or use dangerous equipment. ? You may continue taking your home medicines unless your doctor tells you otherwise. When can I eat or drink? You may eat as you normally would, unless otherwise told by your doctor. Start with a small amount of bland foods. Then move on to your normal foods as tolerated. Spicy or greasy foods may increase your chance of nausea due to the medicines you received during the procedure. How active can I be? You should move around as you are able. Do your normal activities if you feel you can. Sexual activity is fine unless your doctor tells you otherwise. How do I find out my biopsy results? If you had a biopsy, it may take 7-10 days for biopsy results. These results will be available in the patient portal, [employer], or you can call the doctor who ordered your procedure. When should I call the doctor? Call 501 right away or go to the nearest emergency department if you have any of these: ? Difficulty breathing ? Severe pain in the throat ? Severe pain in the chest or belly ? Vomiting that does not go away ? Fever of 101??F or higher ? Yellow skin or eyes ? Blood in your stool ? Redness or tenderness of the IV site that lasts longer than 48 hours ? Any other worrisome symptoms These may be related to a complication and need medical attention. If you do not tell your doctor, the problem may get worse. Our contact information: For the Endoscopy Provider, call and ask for the Endoscopy Fellow on-call. documented in this encounter Plan of Treatment Upcoming Encounters Date Type Department Care Team (Late st Contact Info) Description 04/22/2025 8:40 AM EDT Office Visit [facility] Medicine Specialties [address] [place] [address] NaderJay espinosaitij [address] [place] [address] (work) documented as of this encounter Procedures Procedure Name Priority Date/Time Associated Diagnosis Comments ERCP Routine 03/31/2025 9:53 AM EDT Common bile duct dilation POCT GLUCOSE METER UNSOLICITED RESULTS Routine 03/31/2025 8:21 AM EDT documented in this encounter Results * ERCP 1 - Grade 1 (03/31/2025 9:53 AM EDT) Anatomical Region Laterality Modality Endoscopy Narrative 04/01/2025 9:22 AM EDT Table formatting from the original result was not included. Impression One patent 7 Fr x 7 cm double pigtail biliary stent in stable position, removed. Multiple sweeps performed in the common hepatic and bile ducts with clearance of large amount of sludge and stones. Cholangiogram done after sweeping showed no filling defects, suggesting complete clearance. No stents were placed. Post Procedure Diagnosis Common bile duct dilation Choledocholithiasis Recommendations Discharge home with escort. Clear liquid diet for 4h. Restart previous diet tonight. No stents were placed given complete clearance of bile ducts was achieved with no residual stones. Repeat CMP in 2 weeks (ordered). Follow up with me in advanced endoscopy clinic. Restart home medications, no anticoagulation or antiplatelet restrictions. Monitor for post-procedure complications abdominal pain, fever, gastrointestinal bleeding and go to ER if present. Findings and recommendations discussed with patient and family at the bedside. Follow up with referring provider. Indication Common bile duct dilation Medications See anesthesia record for anesthesia administered medications. Levofloxacin 500mg IV Staff Staff Role Daniel Peraza, Sohail Elise CRNA, Mejia Nicole CRNA, MD Anesthesiologist Jake Juares Endo Senior Wind Energy Consultant Soto Doe Proceduralist Dieudonne Soares MD Proceduralist Mosoe Croft Endo Senior Wind Energy Consultant Loli Vivar, RN Endo Nurse Preprocedure A history and physical has been performed, and patient medication allergies have been reviewed. The patient's tolerance of previous anesthesia has been reviewed. The risks and benefits of the procedure and the sedation options and risks were discussed with the patient. All questions were answered and informed consent obtained. Details of the Procedure The patient underwent general anesthesia, which was administered by an anesthesia professional. The patient's blood pressure, heart rate, level of consciousness, oxygen saturation and respirations were monitored throughout the procedure. The scope was introduced through the mouth and advanced to the second part of the duodenum. Insufflated with carbon dioxide. Clinical intention was achieved. The patient experienced no blood loss. The procedure was not difficult. The patient tolerated the procedure well. There were no apparent adverse events. Fluoroscopy was administered by Radiology staff. Attestation I was present for the entire procedure Specimens No specimens were documented in this log. Implants Implants Implant Type Site Status Size Editing User Findings The production leader film showed clips in the right upper quadrant consistent with prior cholecystectomy and a biliary stent. The duodenoscope was passed under direct vision through the mouth and advanced to the second portion of the duodenum. The major papilla was non-nikolski. The major papilla showed evidence of previous biliary sphincterotomy. One patent 7 Fr x 7 cm double pigtail plastic biliary stent was visualized in the major papilla. The stent was successfully removed using forceps. The common bile duct was deeply cannulated using an extraction balloon with 270 cm x 0.035 angled guidewire. Cannulation was not difficult and no bleeding was observed. Multiple sweeps were performed in the common bile duct using a 11.5 mm balloon. Sludge and stones were removed, achieving complete clearance. A cholangiogram was performed using a balloon occlusion technique. I personally interpreted the bile duct images. Ductal flow of contrast was adequate. The cholangiogram done after sweeping revealed no filling defect. Immediate and spontaneous flow of contrast noted after the cholangiogram with no residual contrast in the biliary system. The duodenoscope was withdrawn into the stomach. Fluid and air was suctioned from the stomach. Retroflexion was used to examine the cardia. The duodenoscope was withdrawn form the mouth and the procedure was thus ended. Soto Doe GI PROCEDURE ORDERABLES Final Re sult * (ABNORMAL) POCT glucose meter (03/31/2025 8:21 AM EDT) POCT Glucose 141(H) 74 - 99 mg/dL 03/31/2025 8:22 AM EDT [facility] Comment:Accuracy of a glucos e result obtained from a capillary whole blood specimen relies upon adequate, non-compromised capillary blood flow. If the capillary glucose result is not consistent with the patient's clinical signs and symptoms, glucose testing should be repeated with either an arterial or venous sample on the glucometer or sent to the main labortory for testing. Comment 03/31/2025 8:22 AM EDT [facility] Primary Teaching Assistant ID Yuli Degroot 025 8:22 AM EDT HEALTHCARE LAB Device ID [id number] 03/31/2025 8:22 AM EDT [facility]ARE [facility] Specimen Type POC Capillary 03/31/2025 8:22 AM EDT [facility] LAB Blood Capillary blood specimen / Unknown 03/31/2025 8:21 AM EDT 03/31/2025 8:22 AM EDT Soto N[facility] LAB POINT OF CARE TE ST DOCKED DEVICE UNSOLICITED RESULTS Final Result [facility] [address] [place] [address] documented in this encounter Visit Diagnoses Diagnosis Common bile duct dilation documented in this encounter Additional Health Concerns Assessment Noted Time A Body Mass Index follow-up plan has been documented for the patient 02/17/2025 12:51 PM EDT documented as of this encounter Care Teams Water Treatment Plant Repairer Relationship Specialty Start Date End Date System, Provider Not In, [facility] [place] [address] PCP - General Family Medicine 02/21/25 documented as of this encounter
--- OUTSIDE RECORDS SUMMARY | 2025-03-31 09:01 | XMS_ITS | Encounter Summary ---
Author Organization Healthcare Address [address] [place] [address] Care Team Providers Care Amusement Park Ride Mechanic Name Role Phone System, Provider Not In MD Primary Care Provider Unavailable Encounter Details Date Type Department Care Team (Latest Contact Info) Description 03/31/2025 9:01 AM EDT - 03/31/2025 11:59 PM EDT Hospital Encounter [facility] H Radiology [address] [place] [address] Common bile duct dilation Discharge Disposition: Home [...] any time in the past 12 m [facility], were you homeless or living in a long-term (including now)? No 02/14/2025 Utilities Answer Date Recorded In the past 12 months has th e electric, gas, oil, or water company [...] on file documented as of this encounter Functional Status * Are you [...] tablet 02/17/2025 documented as of this encounter Plan of Treatment Upcoming Encounters Date Type Department Care Team (Late st Contact Info) Description 04/22/2025 8:40 AM EDT Office Visit [facility] Medicine Specialties [address] [place] [address] Soto Doe [address] [place] [address] documented as of this encounter Procedures Procedure Name Priority Date/Time Associated Diagnosis Comments FL ERC Routine 03/31/2025 10:48 AM EDT Common bile duct dilation documented in this encounter Results * FL ERC (03/31/2025 10:48 AM EDT) Narrative IMAGING - 03/31/2025 10:48 AM EDT Images were obtained for surgical purposes. See Soto Doe's surgical note in the patient's chart for the findings. Soto Doe IM FLUOROSCOPY PROCEDURES Final Result IMAGING documented in this encounter Visit Diagnoses Diagnosis Common bile duct dilation documented in this encounter Additional Health Concerns Assessment Noted Time A Body Mass Index follow-up plan has been documented for the patient 02/17/2025 12:51 PM EDT documented as of this encounter Care Teams Amusement Park Ride Mechanic Relationship Specialty Start Date End Date System, Provider Not In, [place] [address] PCP - General Family Medicine 02/21/25 documented as of this encounter
--- OUTSIDE RECORDS SUMMARY | 2025-03-31 09:07 | XMS_ITS | Encounter Summary ---
Author Organization Healthcare Address [address] [place] [address] Care Team Providers Care Steam Clothes Press Operator Name Role Phone System, Provider Not In MD Primary Care Provider Unavailable Encounter Details Date Type Department Care Team (Late st Contact Info) Description 03/31/2025 9:07 AM EDT Anesthesia Event [facility] [address] [place] [address] Mejia Garcia MD [address] [place] [phone] Daniel Peraza, RIMA [address] [place] [phone] Anesthesia Record Procedure Summary Procedure Name Responsible Anesthesiologist Anesthesia Start Time Anesthesia Stop Time ERCP Mejia Garcia MD 03/31/25 0907 5 1009 Events Date Time Event Comment 03/31/2025 0907 An Start The patient was reevaluated immediately before sedation and remains eligible for anesthesia plan. 0909 An Start Data 0910 In Room 0916 An Induction The patient was reevaluated immediately before moderate or deep sedation use and before anesthesia induction. 0918 An Intubation 0919 Anesthesia Ready 0924 Proc Start 0946 Proc Fin 0949 An Extubation 0953 Out of Room 0953 an stop data 1009 Handoff to Receiving I compl eted my handoff to the receiving clinician during which we: 1. Identified the patient 2. Identified the responsible provider 3. Reviewed the pertinent medical history 4. Discussed the surgical course 5. Reviewed intra-op anesthesia management and issues during anesthesia 6. Set expectations for post-procedure period 7. Allowed opportunity for questions and acknowledgement of understanding. 1009 An Stop Meds Name Total lidocaine PF (Xylocaine-MPF) 2% 60 mg propofol (Diprivan) injection 10 mg/mL 2 00 mg rocuronium (ZeMuron) injection 10 mg/mL 50 mg ondansetron (Zofran) injection 2 mg/mL 4 mg sugammadex (Bridion) injection 100 mg/mL 200 mg levoFLOXacin (Levaquin) 500 mg in 100 mL (premix) 500 mg lactated Ringer's infusion 400 mL * Agents Name O2 N2O Air Sevoflurane Inspired Sevoflurane N2O Inspired N2O * Blood No blood administrations on file. Lines, Drains, and Airways Type Details Placement Removal Peripheral IV Placement Date: 03/14 03/07; Placement Time: 817; Catheter Size: 20 G; Orientation: Posterior, Right; Location: Hand; Site Prep: Alcohol; Technique: Anatomical landmarks; Insertion Attempts: 1; Patient Tolerance: Tolerated well; Removal Date: 03/31/25; Removal Time: 1042 03/31/25817 by Moose Abad RN 03/31/25 104 by Rosario Ortiz ETT Placement Date: 03/14 03/07; Placement Time: 917 (created via procedure documentation); Mask Ventilation: 1; Technique: Direct laryngoscopy; Type: ETT - single; Single Lumen Tube Size: 7.5 mm; Cuffed: Yes; Laryngoscope: Amber; Blade Size: 4; Location: Oral; Grade View: Grade IIa; Insertion Attempts: 1; Placement Verification: Auscultation, Capnometry; Airway Comments: Atraumatic. No change to dentition. ; Placed by: RIMA; Removal Date: 03/31/25; Removal Time: 94803/31/25917 by Sohail Smith CRNA 03/31/25948 by Daniel Peraza CRNA documented in this encounter Social History Tobacco Use Types Packs/Day Years [...] any time in the past 12 m [facility], were you homeless or living in a fdc (including now)? No 02/14/2025 Utilities Answer Date [...] Linden Guzman RN documented in this encounter Miscellaneous Notes * Anesthesia Postprocedure Evaluation - Daniel Peraza CRNA - 03/31/2025 10:09 AM EDT Patient: Mohan Viera Anesthesia Type: general Vitals Value Taken Time BP 122/73 03/31/25 10:05 Temp 36.3 ??C (97.3 ??F) 03/31/25 09:55 Pulse 59 03/31/25 10:08 Resp 12 03/31/25 10:08 SpO2 100 % 03/31/25 10:08 Vitals shown include unfiled device data. Anesthesia Post Evaluation Patient location during evaluation: PACU Patient participation: complete - patient participated Level of consciousness: awake Pain management: adequate (pain score 0-3) Airway patency: natural airway Cardiovascular status: acceptable and hemodynamically stable Respiratory status: acceptable and blow-by oxygen Hydration status: acceptable Nausea/Vomiting: No No notable events documented. * Anesthesia Procedure Notes - Sohail Smith CRNA - 03/31/2025 9:21 AM EDT Associated Order(s): Airway Airway Date/Time: 03/31/2025 9:18 AM Reason: elective Airway not difficult General Information and Staff Patient location during procedure: OR GRADUATE FELLOW: Sohail Smith CRNA Performed: GRADUATE FELLOW Patient Condition Indications for airway management: anesthesia Patient position: sniffing Final Airway Details Final airway type: endotracheal airway Successful airway: ETT Cuffed: yes Successful intubation technique: direct laryngoscopy Adjuncts used in placement: intubating stylet Endotracheal tube insertion site: oral Blade: Amber Blade size: #4 ETT size (mm): 7.5 Cormack-Lehane Classification: grade IIa - partial view of glottis Placement verified by: chest auscultation and capnometry Inital cuff pressure (cm H2O): 8 Measured from: lips ETT to lips (cm): 22 Additional Comments Atraumatic. No change to dentition. * Anesthesia Preprocedure Evaluation - Mejia Garcia MD - 03/31/2025 9:01 AM EDT Images from the original note were not included. No anesthesia staff entered. Patient: Mohan Viera HPI Mohan Viera is a 64 y.o. male with body mass index is 34.98 kg/m?? (pended). who presents with No Principal Problem: There is no principal problem currently on the Problem List. Please update the Problem List and refresh., now for Procedure Information Date/Time: 03/31/25 0930 Scheduled providers: Soto Doe Procedure: ERCP Location: [facility] H Endoscopy Mr. Viera is a 64M with PMH: DM2, CHRISTAL, HTN GERD controlled, choledocholithiasis s/p ERCP and stent removal, gallstone pancreatitis. Here for ERCP. History of previous anesthesia without complications. Denies family history. >4 METs. Appropriately NPO. Allergies to erythromycin, pcn, tetracyclin es. EKG 02/2025: NSR, poor r wave progression, non specific t wave abnormality. Relevant Problems Anesthesia (+) CHRISTAL (obstructive sleep apnea) Cardio (+) HTN (hypertension) Endo (+) Diabetes mellitus, type 2 (CMS/HCC) GI (+) Gastroesophageal reflux disease ALLERGIES Allergies[1] NPO STATUS Date of Last Liquid: 03/30/25 Time of Last Liquid: 1929 Date of Last Solid: 03/30/25 Time of Last Solid: 1929 Past Medical History[2] AIRWAY HISTORY Airway Detailed Review Displaying the 20 most recent records Date Difficult Airway Blade Size ETT Size C-L Class Final Type Intubation Method 02/15/25 No 4 8.0 grade I - full view of glottis endotracheal airway video laryngoscopy 04/25/23 No 3 7.5 grade IIb - view of arytenoids or posterior of glottis only endotracheal airway direct laryngoscopy 01/20/23 No 3 7.5 grade IIb - view of arytenoids or posterior of glottis only endotracheal airway direct laryngoscopy 01/16/23 No 4 7.5 grade I - full view of glottis endotracheal airway video laryngoscopy MEDICATIONS Outpatient Current Outpatient Medications Medication Instructions acetaminophen (TYLENOL) 500 mg, Oral, Every 6 hours Lvnclaftl-Khfqbfylwbj-Lgt D (OSTEO BI-FLEX ONE PER DAY PO) 1 tablet, Daily hydroCHLOROthiazide (HYDRODIURIL) 25 mg, Every morning losartan (COZAAR) 100 mg, Every morning meloxicam (MOBIC) 15 mg, Daily PRN metFORMIN XR (GLUCOPHAGE-XR) 500 mg, Daily with breakfast omeprazole (PRILOSEC) 20 mg, Every morning polyethylene glycol (MIRALAX) 17 g, Oral, Daily PRN senna (SENOKOT) 17.2 mg, Oral, 2 times daily PRN Scheduled Current Scheduled Medications[3] PRNs Current PRN Medications[4] SURGICAL HX: Surgical History[5] SOCIAL HX: Social History[6] OBJECTIVE DATA LABS Lab Results Component Value Date WBC 6.73 02/16/2025 HGB 11.2 (L) 02/16/2025 HCT 33.2 (L) 02/16/2025 MCV 90 02/16/2025 PLT 141 (L) 02/16/2025 Lab Results Component Value Date CALCIUM 8.4 (L) 02/17/2025 BUN 25 (H) 02/17/2025 CREATININE 1.20 02/17/2025 BCR 21 02/17/2025 NA 139 02/17/2025 K 3.8 02/17/2025 CL 105 02/17/2025 CO2 24 02/17/2025 Type and Screen No results found for: ABO Lab Results Component Value Date HGBA1C 7.2 (H) 02/14/2025 Lab Results Component Value Date PGLU 141 (H) 03/31/2025 GLUCOSE 150 (H) 02/17/2025 ABG Lab Results Component Value Date LACTATE 1.0 01/16/2023 Lab Results Component Value Date LACTATE 1.0 01/16/2023 ECHO No echocardiogram results found for the past 12 months PFTs No results found for: KSJ0PUJ , EDH7NLHB , HAN1ZTV , FVCPRED BP Readings from Last 5 Encounters: 03/31/25 (P) 129/72 02/17/25 126/77 02/13/25 103/60 04/25/23 118/76 03/13/23 133/70 Physical Exam Airway Mallampati: II TM distance: >3 FB Neck ROM: full Cardiovascular Rhythm: regular Rate: normal Dental Pulmonary (-) wheezes Neurological Oriented: normal to time, normal to place and normal to person Skin Skin: warm and moist Capillary refill: brisk (< 3 secs) Musculoskeletal Extremities Anesthesia Plan ASA 3 Plan was reviewed with: GRADUATE FELLOW Anesthesia technique(s) discussed with the patient/family: general Anesthesia plan agreed upon was: general Anesthetic plan and risks discussed with patient. ROS Anesthesia: history of previous anesthesia. Does not have a history of anesthetic complications. Cardiovascular: hyperlipidemia. hypertension: Respiratory: Respiratory ROS additional comments: CHRISTAL on CPAP Neurological: Did not have a cerebrovascular accident.Does not have TIA. Gastrointestinal: GERD: well controlled. GI/ additional comments: Hx choledocholithiasis Hematological/Lymphatic: Hem/Lymph ROS additional comments: Thrombocytopenia: 141 plt count Endocrine/Metabolic: diabetes mellitus. 7.2 [1] Allergies Allergen Reactions Erythromycin Hives Penicillins Hives Tetracyclines & Related Hives [2] Past Medical History: Diagnosis Date Diabetes mellitus (CMS/HCC) GERD (gastroesophageal reflux disease) Hypertension Pancreatitis Sleep apnea [3] [4] [5] Past Surgical History: Procedure Laterality Date CHOLECYSTECTOMY ERCP [6] Social History Tobacco Use Smoking status: Never Smokeless tobacco: Never Vaping Use Vaping status: Never Used Substance Use Topics Alcohol use: Not Currently Drug use: Never documented in this encounter Plan of Treatment Upcoming Encounters Date Type Department Care Team (Late st Contact Info) Description 04/22/2025 8:40 AM EDT Office Visit [facility] Medicine Specialties [address] [place] [address] Monica Doej [address] [place] [address] documented as of this encounter Procedures Procedure Name Priority Date/Time Associated Diagnosis Comments PB ANESTHESIA PLACEHOLDER Routine 03/31/2025 9:18 AM EDT FL AN ELECTIVE ENDOTRACHEAL AIRWAY Routine 03/31/2025 9:18 AM EDT documented in this encounter Results * FL AN ELECTIVE ENDOTRACHEAL AIRWAY, PB ANESTHESIA PLACEHOLDER (03/31/2025 9:18 AM EDT) Narrative Sohail Smith CRNA - 03/31/2025 9:18 AM EDT Sohail Smith CRNA 03/31/2025 9:22 AM Airway Date/Time: 03/31/2025 9:18 AM Reason: elective Airway not difficult General Information and Staff Patient location during procedure: OR GRADUATE FELLOW: Sohail Smith CRNA Performed: GRADUATE FELLOW Patient Condition Indications for airway management: anesthesia Patient position: sniffing Final Airway Details Final airway type: endotracheal airway Successful airway: ETT Cuffed: yes Successful intubation technique: direct laryngoscopy Adjuncts used in placement: intubating stylet Endotracheal tube insertion site: oral Blade: Amber Blade size: #4 ETT size (mm): 7.5 Cormack-Lehane Classification: grade IIa - partial view of glottis Placement verified by: chest auscultation and capnometry Inital cuff pressure (cm H2O): 8 Measured from: lips ETT to lips (cm): 22 Additional Comments Atraumatic. No change to dentition. us Mejia Garcia MD ANESTHESIA ORDERABLES Final Re sult documented in this encounter Visit Diagnoses Not on filedocumented in this encounter Administered Medications Inactive Administered Medications - up to 3 most recent administrations Medication Order MAR Action Action Date Dose Rate Site lactated Ringer's infusion Intravenous, Continuous PRN, Starting on Daisha 03/31/25 at 0909, Until Daisha 03/31/25 at 1009, Routine New Bag 03/31/2025 9:09 AM EDT levoFLOXacin (Levaquin) IVPB Intravenous, As needed, Starting on Daisha 03/31/25 at 0927, Until Daisha 03/31/25 at 1009, Administer over 60 Minutes, Routine Given 03/31/2025 9:27 AM EDT 500 mg lidocaine PF (Xylocaine) 2 % injection Intravenous, As needed, Starting on Daisha 03/31/25 at 0916, Until Diasha 03/31/25 at 1009, Routine, Anesthesia Intraprocedure Given 03/31/2025 9:16 AM EDT 60 mg ondansetron (Zofran) injection Intravenous, As needed, Starting on Daisha 03/31/25 at 0916, Until Daisha 03/31/25 at 1009, Routine, Anesthesia Intraprocedure Given 03/31/2025 9:16 AM EDT 4 mg propofol (Diprivan) injection Intravenous, As needed, Starting on Daisha 03/31/25 at 0909, Until Daisha 03/31/25 at 1009, Routine, Anesthesia Intraprocedure Given 03/31/2025 9:09 AM EDT 200 mg rocuronium (ZeMuron) injection Intravenous, As needed, Starting on Daisha 03/31/25 at 0916, Until Daisha 03/31/25 at 1009, Routine, Anesthesia Intraprocedure Given 03/31/2025 9:16 AM EDT 50 mg sugammadex (Bridion) 100 MG/ML injection Intravenous, As needed, Starting on Daisha 03/31/25 at 0915, Until Daisha 03/31/25 at 1009, Routine, Anesthesia Intraprocedure Given 03/31/2025 9:15 AM EDT 200 mg documented in this encounter Additional Health Concerns Assessment Noted Time A Body Mass Index follow-up plan has been documented for the patient 02/17/2025 12:51 PM EDT documented as of this encounter Care Teams Steam Clothes Press Operator Relationship Specialty Start Date End Date System, Provider Not In, [place] [address] PCP - General Family Medicine 02/21/25 documented as of this encounter
[2025-04-18 20:28] LABS: Hematocrit 42.3 % (42.0-52.0); Hemoglobin 13.9 g/dL (14.1-18.0); Immature Granulocytes % 0.1 %; Mean Corpuscular HGB Conc 32.9 g/dL (31.8-35.4); Mean Corpuscular Hemoglobin 29.8 pg (27.0-31.2); Mean Corpuscular Volume 90.6 fl (80-94); Nucleated Red Blood Cells % 0 %; Platelet Count 309 K/mm3 (142-424); Red Blood Count 4.67 M/mm3 (4.60-6.20); Red Cell Distribution Width-SD 43.6 fL; White Blood Count 6.9 K/mm3 (4.8-10.8)
[2025-04-18 21:00] LABS: Alanine Aminotransferase 38 U/L (12-78); Albumin Level 4.0 g/dl (3.5-5.0); Albumin/Globulin Ratio 1.9 (1.1-1.8); Alkaline Phosphatase 116 U/L (38-126); Anion Gap 14.0 mEq/L (5-15); Aspartate Amino Transferase 28 U/L (17-59); Bilirubin,Total 0.7 mg/dl (0.2-1.3); Blood Urea Nitrogen 19 mg/dl (9-20); Calcium 8.9 mg/dl (8.4-10.2); Carbon Dioxide 27 mmol/L (22.0-30.0); Chloride 101 mmol/L (98-107); Creatinine,Serum 1.20 mg/dl (0.66-1.25); Estimated Glomerular Filt Rate 61 ml/min (>60); GFR (African American) 74 ML/MIN (>60); Globulin 2.1 g/dL (1.3-3.2); Glucose 135 mg/dl (74-100); Potassium 4.0 mmoL/L (3.5-5.1); Sodium 138 mmol/L (136-145); Total Protein,Serum 6.1 g/dl (6.3-8.2)
[2025-04-18 21:18] LABS: Hemoglobin A1C 6.8 % (4.0-6.0)
--- OUTSIDE RECORDS SUMMARY | 2025-04-19 01:30 | XMS_ITS | Encounter Summary ---
Author Organization Healthcare Address [address] [place] [address] Care Team Providers Care Maintenance Supervisor Mechanical Name Role Phone System, Provider Not In MD Primary Care Provider Unavailable Encounter Details Date Type Department Care Team (Latest Contact Info) Description 03/28/2025 Travel Social History Tobacco Use Types Packs/Day Years [...] any time in the past 12 m [facility], were you homeless or living in a detention (including now)? No 02/14/2025 Utilities Answer Date [...] Author No 01/21/2023 2:19 PM EDT Linden Guzman, GUILLERMINA * Because of a physical, mental, or [...] Linden Guzman RN documented in this encounter Plan of Treatment Upcoming Encounters Date Type Department Care Team (Late st Contact Info) Description 04/22/2025 8:40 AM EDT Office Visit [facility] Medicine Specialties [address] [place] [address] Soto Doe [address] [place] [address] documented as of this encounter Visit Diagnoses Not on filedocumented in this encounter Additional Health Concerns Assessment Noted Time A Body Mass Index follow-up plan has been documented for the patient 02/17/2025 12:51 PM EDT documented as of this encounter Care Teams Maintenance Supervisor Mechanical Relationship Specialty Start Date End Date System, Provider Not In, [place] [address] PCP - General Family Medicine 02/21/25 documented as of this encounter
--- OUTSIDE RECORDS SUMMARY | 2025-04-19 01:30 | XMS_ITS | Encounter Summary ---
Author Organization Healthcare Address [address] [place] [address] Care Team Providers Care Market Investigator Name Role Phone Priscila Harper LPN Unavailable Unavailable System, Provider Not In MD Primary Care Provider Unavailable Reason for Visit * Reason Comments TCM Encounter Details Date Type Department Care Team (Late st Contact Info) Description 02/21/2025 Patient Outreach [facility] [address] [place] [address] Priscila Harper LPN [employer] [place] [address] TCM Social History Tobacco Use Types Packs/Day Years [...] No 02/14/2025 Overall Financial Resource Strain (CARDIA) Jude r Date Recorded How hard is it [...] any time in the past [address] [facility], were you homeless or living in a jail (including now)? No 02/14/2025 Utilities Answer Date [...] Author No 01/21/2023 2:19 PM EDT Linden Gumzan RN * Do you have serious difficulty [...] documented in this encounter Miscellaneous Notes * Progress Notes - Priscila Harper LPN - 02/21/2025 9:17 AM EDT Admit Date: 02/13/2025 Discharge Date: 02/17/2025 Hospital Service: Hospital Medicine Discharge Diagnosis: Choledocholithiasis 02/21/2025 TCM call # 2 Patient Reached: Y Outcome: Patient reached. Patient states he will call his outside PCP Dr. Lawrence Lee to schedule hospital follow up appointment. Patient reports he is doing better. Endorsed diarrhea but denied N/V, fever, chills, SOA, urine complaints or pain. Reports he is taking less senna and miralax sincehis bowels are moving now. States he does not monitor his BP at home and has not checked his BS since hospital discharge. Reports he needs to warehouse order picker a refill on his lancets from the pharmacy. Stateshe is eating small meals. Medications reviewed and patient reports he is compliant with all at homeand discharge medications. Sdoh is up to date and patient denied any new needs. Patient reports he has transportation to his appointments and did not have any other questions, concerns or complaints at time of nurse call. Action: PCP removed and updated to Dr. Lawrence Khan per patient. Medication changes per AVS: START taking: acetaminophen (Tylenol) 500mg q 6 hr ciprofloxacin (Cipro) 500mg BID x 8 doses metroNIDAZOLE (Flagyl) 500mg q 8 hr for 12 doses polyethylene glycol (Miralax) 17gm q day prn senna (Senokot) 8.6mg take 2 BID prn [facility] appointment: N/A Items to address at [facility] per discharge summary: Post Discharge Instructions Please follow up with your PCP in 1-2 weeks about your recent hospitalization. Please follow up with Gastroenterology for a repeat ERCP in 5-6 weeks. documented in this encounter Plan of Treatment Upcoming Encounters Date Type Department Care Team (Late st Contact Info) Description 04/22/2025 8:40 AM EDT Office Visit [facility] Medicine Specialties [address] [place] [address] NaderJay espinosaitij [address] [place] [address] documented as of this encounter Visit Diagnoses Not on filedocumented in this encounter Additional Health Concerns Assessment Noted Time A Body Mass Index follow-up plan has been documented for the patient 02/17/2025 12:51 PM EDT documented as of this encounter Care Teams Market Investigator Relationship Specialty Start Date End Date System, Provider Not In, [place] [address] PCP - General Family Medicine 02/21/25 Priscila Harper LPN [employer] [place] [address] TCM Nurse 02/18/25 03/20/25 documented as of this encounter
--- OUTSIDE RECORDS SUMMARY | 2025-04-19 01:31 | XMS_ITS | Encounter Summary ---
[facility] [address] [place] [address] Care Team Providers Care Retail Sales Professional Name Role Phone Mikie Mata DO Primary Care Provider [phone] Encounter Details Date Type Department Care Team (Late st Contact Info) Description 04/07/2025 Refill [facility] FAMILY MEDICINE [address] [facility] [place] [address] Mikie Mata DO [address] [address] Essential hypertension; Hypertension; Hypertension, unspecified type Social History Tobacco Use Types Packs/Day Years Used Date Smoking Tobacco: Never Passive Smoke Exposure: Never Smokeless Tobacco: Never Alcohol Use Standard Drinks/Week Comments Not Currently 1 (1 standard drink = 0.6 oz pur e alcohol) occasional wine PHQ-2 Answer Date Recorded Retired PHQ-9: Brief Depression Severity Measure Score 0 08/28/2022 PHQ-2 Answer Date Recorded Retired PHQ-9: Brief Depression Severity Measure Score 0 09/05/2023 Sex and Gender Information Value Date Recorded Sex Assigned at Not on file Legal Sex Male 10:14 AM EDT Gender Identity Not on file Sexual Orientation Not on file documented as of this encounter Plan of Treatment Not on file documented as of this encounter Visit Diagnoses Diagnosis Essential hypertension Unspecified essential hypertension Hypertension Unspecified essential hypertension Hypertension, unspecified type documented in this encounter Care Teams Retail Sales Professional Relationship Specialty Start Date End Date Mikie Mata DO [address] [place] [address] PCP - General Family Medicine 01/30/21 documented as of this encounter
--- OUTSIDE RECORDS SUMMARY | 2025-04-19 01:31 | XMS_ITS | Encounter Summary ---
[facility] [address] [place] [address] Care Team Providers Care Computer Repairer Name Role Phone Mikie Mata Primary Care Provider [phone] Encounter Details Date Type Department Care Team (Late st Contact Info) Description 02/18/2025 Transitional Care Management Telephone Encounter [facility] [address] [place] [address] Saige Booth RN Social History Tobacco Use Types Packs/Day Years [...] on file documented as of this encounter Miscellaneous Notes * Outreach Note - Saige Booth RN - 02/18/2025 10:06 AM EDT Images from the original note were not included. Call Center TCM Note Flowsheet Row Responses [facility] [place] patient discharged from? Non- [[place]] Does the patient have one of the following disease processes/diagnoses(primary or secondary)? Other TCM attempt successful? Yes Call start time 1009 Call end time 1022 Discharge diagnosis Common bile duct dilation, s/p ERCP Does the patient have all medications ordered at discharge? Yes Is the patient taking all medications as directed (includes completed medication regime)? Yes Does the patient have an appointment with their PCP within 7-14 days of discharge? No Nursing Interventions Patient declined scheduling/rescheduling appointment at this time, Patient desires to follow up with specialty only Has home health visited the patient within 72 hours of discharge? N/A Psychosocial issues? No What is the patient's perception of their health status since discharge? Same Is the patient/caregiver able to teach back signs and symptoms related to disease process for when to call PCP? Yes Is the patient/caregiver able to teach back signs and symptoms related to disease process for when to call 911? Yes Is the patient/caregiver able to teach back the hierarchy of who to call/visit for symptoms/problems? PCP, Specialist, Home health nurse, Urgent Care, ED, 911 Yes If the patient is a current smoker, are they able to teach back resources for cessation? Not a smoker TCM call completed? Yes Wrap up additional comments States he is not doing much better, read through discharge notes andgave him a number to call, also suggested calling nurse triage line, patient verbalized understanding and declined to schedule a hospital follow up appt with PCP at this time. Call end time 1022 Would this patient benefit from a Referral to [facility] Social Work? No Is the patient interested in additional calls from an ambulatory director of casework department? No Saige Sidhu - Registered Nurse 02/18/2025, 10:24 EDT documented in this encounter Plan of Treatment Not on file documented as of this encounter Visit Diagnoses Not on filedocumented in this encounter Care Teams Computer Repairer Relationship Specialty Start Date End Date Mikie Mata DO [address] [place] [address] PCP - General Family Medicine 01/30/21 documented as of this encounter
--- OUTSIDE RECORDS SUMMARY | 2025-04-19 01:31 | XMS_ITS | Encounter Summary ---
Author Organization Healthcare Address [address] [place] [address] Care Team Providers Care Electrical And Instrumentation Manager Name Role Phone System, Provider Not In MD Primary Care Provider Unavailable Encounter Details Date Type Department Care Team (Latest Contact Info) Description 03/31/2025 Travel Social History Tobacco Use Types Packs/Day [...] any time in the past 12 m [facility], were you homeless or living in a [place] [facility] [place] facility (including now)? No 02/14/2025 Utilities Answer Date [...] Description 04/22/2025 8:40 AM EDT Office Visit [facility] Medicine Specialties [address] [place] [address] [address] [place] [address] documented as of this encounter Visit Diagnoses Not on filedocumented in this encounter Additional Health Concerns Assessment Noted Time A Body Mass Index follow-up plan has been documented for the patient 02/17/2025 12:51 PM EDT documented as of this encounter Care Teams Electrical And Instrumentation Manager Relationship Specialty Start Date End Date System, Provider Not In, [place] [address] PCP - General Family Medicine 02/21/25 documented as of this encounter
--- OUTSIDE RECORDS SUMMARY | 2025-04-19 01:31 | XMS_ITS | Encounter Summary ---
Author Organization Healthcare Address [address] [place] [address] Care Team Providers Care Plate Keeper Name Role Phone Mikie Mata Primary Care Provider [phone] Priscila Harper LPN Unavailable Unavailable Reason for Visit * Reason Comments TCM Encounter Details Date Type Department Care Team (Late st Contact Info) Description 02/18/2025 Patient Outreach POPULATION HEALTH [address], [address] [place] [address] Priscila Harper LPN VALUE-BASED TRANSFORMATION [place] [address] TCM Social History Tobacco Use Types Packs/Day [...] No 02/14/2025 Overall Financial Resource Strain (CARDIA) Chrise r Date Recorded How hard is it [...] any time in the past 12 m [facility], were you homeless or living in a penitentiary (including now)? No 02/14/2025 Utilities Answer Date [...] Assessment Author No 01/21/2023 2:19 PM EDT Lidnen Guzman RN * Are you blind or [...] Progress Notes - Priscila Harper LPN - 02/18/2025 12:45 PM EDT Admit Date: 02/13/2025 Discharge Date: 02/17/2025 Hospital Service: Hospital Medicine Discharge Diagnosis: Choledocholithiasis 02/18/2025 TCM call # 1 Patient Reached: N Outcome: Patient not reached, LVM. Action: N/A Medication changes per AVS: START taking: acetaminophen [...] your recent hospitalization. Please follow up with [facility] for a repeat ERCP in 5-6 weeks. documented in this encounter Plan of Treatment Upcoming Encounters Date Type Department Care Team (Late st Contact Info) Description 04/22/2025 8:40 AM EDT Office Visit [facility] Medicine Specialties [address] [place] [address] Soto Doe [address] [place] [address] documented as of this encounter Visit Diagnoses Not on filedocumented in this encounter Additional Health Concerns Assessment Noted Time A Body Mass Index follow-up plan has been documented for the patient 02/17/2025 12:51 PM EDT documented as of this encounter Care Teams Plate Keeper Relationship Specialty Start Date End Date Mikie Mata DO [address] [place] [address] PCP - General 01/15/23 02/20/25 Priscila Harper LPN VALUE-BASED TRANSFORMATION [place] [address] TCM Nurse 02/18/25 03/20/25 documented as of this encounter
--- OUTSIDE RECORDS SUMMARY | 2025-04-19 01:31 | XMS_ITS | Encounter Summary ---
Author Organization Healthcare Address [address] [place] [address] Care Team Providers Care Electrician Helper [employer]house Name Role Phone System, Provider Not In MD Primary Care Provider Unavailable Encounter Details Date Type Department Care Team (Latest Contact Info) Description 04/15/2025 Travel Social History Tobacco Use Types Packs/Day [...] any time in the past 12 m [facility], were you homeless or living in a residential (including now)? No 02/14/2025 Utilities Answer Date [...] Description 04/22/2025 8:40 AM EDT Office Visit [facility] Medicine Specialties [address] [place] [address] Soto Doe [address] [place] [address] documented as of this encounter Visit Diagnoses Not on filedocumented in this encounter Additional Health Concerns Assessment Noted Time A Body Mass Index follow-up plan has been documented for the patient 02/17/2025 12:51 PM EDT documented as of this encounter Care Teams Electrician [employer] Relationship Specialty Start Date End Date System, Provider Not In, [place] [address] PCP - General Family Medicine 02/21/25 documented as of this encounter
--- OUTSIDE RECORDS SUMMARY | 2025-04-19 01:31 | XMS_ITS | Clinical Summary ---
Author Organization Healthcare Address [address] [place] [address] Care Team Providers Care Hearing And Speech Assistant Name Role Phone System, Provider Not In MD Primary Care Provider Unavailable Allergies Active Allergy Reactions Criticality Noted Date Comments Erythromycin Hives Medium 12/26/2015 Penicillins Hives Medium 12/26/2015 Tetracyclines & Related Hives Medium 12/26/2015 Medications hydroCHLOROthia zide (HYDRODiuril) 25 MG tablet Take 1 tablet by mouth every morning. Active losartan (Cozaar) 100 MG tablet Take 1 tablet by mouth every morning. Active metFORMIN XR (Glucophage-XR) 500 MG 24 hr tablet Take 1 tablet by mouth daily with breakfast. Do not crush, chew, or split. Active omeprazole (PriLOSEC) [address] capsule Take 1 capsule by mouth every morning. Do not crush or chew. Active meloxicam (Mobic) 15 MG tablet Take 1 tablet by mouth daily as needed for mild pain or moderate pain. Active Boswellia-Gluco samine-Vit D (OSTEO BI-FLEX ONE PER DAY PO) Take 1 tablet by mouth daily. Active acetaminophen (Tylenol) 500 MG tablet Take 1 tablet by mouth every 6 hours. 100 tablet 5 Active senna (Senokot) 8.6 MG tablet Take 2 tablets by mouth 2 times a day as needed for constipation. 28 tablet 5 Active Additional Information Patient not taking.Reported on 03/31/2025 polyethylene glycol (Miralax) 17 g packet Take 17 g by mouth daily as needed (Take as needed for constipation). 14 packet 5 5 Active Additional Information Patient not taking.Reported on 03/31/2025 Active Problems Problem Noted Date Diagnosed Date [...] Problem Noted Date Diagnosed Date Resolved Date Elevated liver enzymes 02/17/202502/17 Elevated bilirubin 02/17/2025 Common bile duct dilation 02/17/2025 Choledocholithiasis 02/13/2025 02/18/20 25 Assessment & Plan (02/16/2025 4:21 PM EDT): Mohan Viera is a 64 y.o. male with history of previous choledocholithiasis s/p ERCP and stent removal, gallstone pancreatitis, type 2 diabetes mellitus, HTN, GERD, CHRISTAL presenting with severe abdominal pain, nausea and vomiting. Admitted secondary to concerns for biliary tract disease (cholangitis, cholecystitis, versus choledocholithiasis). ERCP done 02/15. Assessment & Plan (02/15/2025 2:01 PM EDT): Mohan Viera is a 64 y.o. male with history of previous choledocholithiasis s/p ERCP and stent removal, gallstone pancreatitis, type 2 diabetes mellitus, HTN, GERD, CHRISTAL presenting with severe abdominal pain, nausea and vomiting. Admitted secondary to concerns for biliary tract disease (cholangitis, cholecystitis, versus choledocholithiasis). ERCP planned for today. Assessment & Plan (02/14/2025 2:00 PM EDT): Mohan Viera is a 64 y.o. male with history of previous choledocholithiasis s/p ERCP and stent removal, gallstone pancreatitis, type 2 diabetes mellitus, HTN, GERD, CHRISTAL presenting with severe abdominal pain, nausea and vomiting. Admitted for possible choledocholithiasis and GREGORY. Acute kidney injury 01/17/2023 01/22/20 23 Overview (01/17/2023): IV fluids, PO intake Will continue to monitor Gallstone pancreatitis 01/15/202301/21 Overview (01/15/2023): -Consult GI for ERCP -cholecystectomy post ERCP -trend labs Transaminitis 01/15/2023 01/21/2023 Overview (01/15/2023): Trend labs Hyponatremia 01/15/2023 01/21/2023 Overview (01/15/2023): Trend labs Choledocholithiasis 01/15/2023 02/18/20 25 Encounters Date Type Department Care Team Description 04/15/2025 Travel 03/31/2025 9:07 AM EDT Anesthesia Event [facility] [address] [place] [address] Mejia Garcia MD Dorsey, Andrea A, RIMA 03/31/2025 9:01 AM EDT - 03/31/2025 11:59 PM EDT Hospital Encounter [facility] [address] [place] [address] Common bile duct dilation Discharge Disposition: Home or Self Care 03/31/2025 7:56 AM EDT - 03/31/2025 9:00 AM EDT Hospital Encounter [facility] [address] [place] [address] Soto Doe Common bile duct dilation Discharge Disposition: Home or Self Care 03/31/2025 Travel 03/28/2025 Travel 02/21/2025 Patient Outreach [facility] [address] [place] [address] Priscila Harper LPN [facility] 02/18/2025 Patient Outreach [facility] [address], [address] [place] [address] Priscila [place] LPN [facility] 02/16/2025 Travel 02/15/2025 3:22 PM EDT Anesthesia Event [facility] [address] [place] [address] Ty Moreno MD Benson, Cathryn M, [employer] REPAIRER 02/15/2025 Travel 02/14/2025 Travel 02/13/2025 4:17 PM EDT - 02/17/2025 2:53 PM EDT Hospital Encounter [facility]patient [address] [place] [address] Osei Verdin MD Lockstadt, Ciara M, MD Common bile duct dilation (Primary Dx); Elevated bilirubin; Elevated liver enzymes; Cholangitis; Choledocholithiasis ; Gastroesophageal reflux disease, unspecified whether esophagitis present Discharge Disposition: Home or Self Care 02/13/2025 Travel 02/13/2025 Orders Only External Location [address] [place] [address] Lilia Mai DO from Last 3 Months Immunizations Immunization Administration Dates Next Due Influenza, injectable, MDCK, preservative free, quadrivalent 07/10/2022,05/02/2021,06/15/2020,04/26 Influenza, injectable, quadrivalent 05/05/2023,1 09/10/2021,05/02/2021 Influenza, injectable, quadr ivalent, preservative free 06/15/2020 Influenza, intradermal, quad rivalent, preservative free 05/02/2021,06/15/2020,04/26/2019 Pneumococcal 20-irlanda Conj Vaccine 02/25/2024 Pneumococcal Polysaccharide PPV23 01/30/2021 SARS-CoV-2, Unspecified 06/21/2021,10/26/2020, Zoster, Recombinant 08/10/2021,05/08/2021 Family History Medical History Relation Name Comments Lung cancer Father Alcohol abuse Mother Shahla Lung cancer Mother Shahla Anesthesia problems Neg Hx Malig Hyperthermia Neg Hx Relation Name Status Comments Father Mother Shahla Social History Tobacco Use Types [...] in the past 12 m [facility], were you homeless or living in a half-way (including now)? No 02/14/2025 Utilities Answer Date Recorded In the past 12 months has [employer], gas, oil, or water company threatened to [...] Mass Index 34.98 03/31/2025 8:16 AM EDT Plan of Treatment Upcoming Encounters Date Type Department Care Team (Late st Contact Info) Description 04/22/2025 8:40 AM EDT Office Visit [facility] [address] [place] [address] Soto Doe [address] [place] [address] Health Maintenance Due Date Last Done Comments [facility]-/Child/Adol SDOH Screenings 1960 Diabetes: Dental Exam 1972 [facility]-DTaP,Tdap,and Td Vaccines (1 - Tdap) 1981 CT Colonography 2007 Colonoscopy 2007 FIT 2007 FOBT 2007 Sigmoidoscopy 2007 [facility]-Depression Screening 03/13/2024 03/13/2023 DUE-VGVAK-12 Vaccine (4 - season) 2025 06/21/2021, 10/26/2020, 09/28/2020 [facility]-Influenza Vaccine (#1) 03/14/202507/15, 05/05/2023, 07/10/2022, Additional history exists [facility]-Diabetes: Hemoglobin A1C 05/16/202510/2024, 02/25/2024, 09/05/2023, Additional history exists [facility]- SDOH Screenings 08/17/2025 [facility]-Adult SDOH Screenings 08/17/2025 02/14/2025 FIT-DNA 05/31/2027 05/31/2024, 02/21/2021 [facility]-Colorectal Cancer Screening 05/31/2027 [facility]-RSV Vaccine: 60+ Years or (1 - 1-dose 75+ series) 2037 [facility]-Zoster Vaccines Completed 08/10/2021, [facility]-Pneumococcal Vaccine: 50+ Years Completed 02/25/2024, 01/30/2021 [facility]-HIV Screening Completed 02/13/2025, 01/15/2023 [facility]-Hepatitis C Screening Completed 2024, 01/15/2023, 11/03/2017 [facility]-Obesity Intervention Completed 02/13/2025, 02/13 HPV Vaccines Aged Out No longer eligi [...] this topic Medical Devices Implanted Type Area First Helper Device Identifier Shelf Expiration Date Model / Serial / Lot Stent Biliary Covered 10 X 40 Wallflex - [id number] Implanted:Qty: 1 on 01/16/2023 by Wang Stacy MD at [facility] [id number] 09/25/2024 [id number] / / [id number] Stent Zimmon 7fr X 7cm - [id number] Implanted:Qty: 1 on 01/16/2023 by Wang Stacy MD at [facility] [facility]-[id number] 09/11/2025 [id number] / / [id number] Stent Zimmon 7fr X 7cm - [id number] Implanted:Qty: 1 on 02/15/2025 by Don Ann RN at [facility] Bile Duct [facility]-[id number] 12/03/2027 [id number] / / [id number] Procedures Procedure Name Priority Date/Time Associated Diagnosis Comments FL ERC Routine 03/31/2025 10:48 AM EDT Common bile duct dilation ERCP Routine 03/31/2025 9:53 AM EDT Common bile duct dilation PB ANESTHESIA PLACEHOLDER Routine 03/31/2025 9:18 AM EDT ND AN ELECTIVE ENDOTRACHEAL AIRWAY Routine 03/31/2025 9:18 AM EDT POCT GLUCOSE METER UNSOLICITED RESULTS Routine 03/31/2025 8:21 AM EDT POCT GLUCOSE METER UNSOLICITED RESULTS Routine 02/17/2025 11:34 AM EDT PHOSPHORUS, PLASMA Routine 02/17/2025 9: 38 AM EDT COMPREHENSIVE METABOLIC PANEL, PLASMA Routine 02/17/2025 9:38 AM EDT POCT GLUCOSE METER UNSOLICITED RESULTS Routine 02/17/2025 8:04 AM EDT US RENAL COMPLETE Routine 02/16/2025 9:2 8 PM EDT POCT GLUCOSE METER UNSOLICITED RESULTS Routine 02/16/2025 8:10 PM EDT XR ABDOMEN 1 VIEW Routine 02/16/2025 5:5 8 PM EDT POCT GLUCOSE METER UNSOLICITED RESULTS Routine 02/16/2025 4:42 PM EDT POCT GLUCOSE METER UNSOLICITED RESULTS Routine 02/16/2025 11:38 AM EDT POCT GLUCOSE METER UNSOLICITED RESULTS Routine 02/16/2025 7:57 AM EDT PHOSPHORUS, PLASMA Routine 02/16/2025 12 :38 AM EDT MAGNESIUM, PLASMA Routine 02/16/2025 12: 38 AM EDT COMPREHENSIVE METABOLIC PANEL, PLASMA Routine 02/16/2025 12:38 AM EDT CBC W/O DIFFERENTIAL Routine 02/16/2025 12:38 AM EDT POCT GLUCOSE METER UNSOLICITED RESULTS Routine 02/15/2025 7:48 PM EDT ERCP Routine 02/15/2025 4:19 PM EDT Common bile duct dilation Elevated bilirubin FL ERC Routine 02/15/2025 4:06 PM EDT PB ANESTHESIA PLACEHOLDER Routine 02/15/2025 3:31 PM EDT ND AN ELECTIVE ENDOTRACHEAL AIRWAY Routine 02/15/2025 3:31 PM EDT POCT GLUCOSE METER UNSOLICITED RESULTS Routine 02/15/2025 12:07 PM EDT POCT GLUCOSE METER UNSOLICITED RESULTS Routine 02/15/2025 5:39 AM EDT CBC W/O DIFFERENTIAL Routine 02/15/2025 2:00 AM EDT COMPREHENSIVE METABOLIC PANEL, PLASMA Routine 02/15/2025 2:00 AM EDT POCT GLUCOSE METER UNSOLICITED RESULTS Routine 02/15/2025 12:03 AM EDT MRCP W AND WO IV CONTRAST Routine 02/14/2025 8:46 PM EDT POCT GLUCOSE METER UNSOLICITED RESULTS Routine 02/14/2025 5:08 PM EDT URINALYSIS MICROSCOPIC FOR UA REFLEX Routine 02/14/2025 4:10 PM EDT URINE HERNANDEZ PANEL Routine 02/14/2025 4:10 PM EDT URINALYSIS WITH REFLEX MICROSCOPIC Routine 02/14/2025 4:10 PM EDT URINALYSIS WITH REFLEX MICROSCOPIC AND CULTURE Routine 02/14/2025 4:10 PM EDT XR CHEST 1 VIEW Routine 02/14/2025 3:56 PM EDT N-TERMINAL PROBNP, PLASMA Routine 02/14/2025 2:47 PM EDT POCT GLUCOSE METER UNSOLICITED RESULTS Routine 02/14/2025 12:02 PM EDT POCT GLUCOSE METER UNSOLICITED RESULTS Routine 02/14/2025 5:32 AM EDT LACTATE, VENOUS Routine 02/14/2025 3:09 AM EDT LIPID PROFILE, PLASMA Routine 02/14/2025 3:09 AM EDT HEMOGLOBIN A1C Routine 02/14/2025 3:09 AM EDT PROTHROMBIN TIME(PT) / INR Routine 02/14/2025 3:09 AM EDT PHOSPHORUS, PLASMA Routine 02/14/2025 3: 09 AM EDT MAGNESIUM, PLASMA Routine 02/14/2025 3:0 9 AM EDT COMPREHENSIVE METABOLIC PANEL, PLASMA Routine 02/14/2025 3:09 AM EDT CBC W/O DIFFERENTIAL Routine 02/14/2025 3:09 AM EDT LACTATE, VENOUS Routine 02/13/2025 11:34 PM EDT POCT GLUCOSE METER UNSOLICITED RESULTS Routine 02/13/2025 11:32 PM EDT POCT GLUCOSE METER UNSOLICITED RESULTS Routine 02/13/2025 9:17 PM EDT BLOOD CULTURE (AEROBIC/ANAEROBIC SET) Routine 02/13/2025 8:13 PM EDT POCT GLUCOSE METER UNSOLICITED RESULTS Routine 02/13/2025 7:57 PM EDT ECG ADULT Routine 02/13/2025 7:51 PM EDT LACTATE, VENOUS STAT 02/13/2025 5:29 PM EDT PROTHROMBIN TIME(PT) / INR STAT 02/13/2025 5:29 PM EDT EXTRA TUBE LIGHT GREEN TOP Routine 02/13/2025 4:38 PM EDT EXTRA TUBES Routine 02/13/2025 4:38 PM EDT ED HIV 1/2 ANTIBODY/ANTIGEN SCREEN WITH REFLEX TO HIV I/II DIFFERENTIATION STAT 02/13/2025 4:38 PM EDT ED PROTOCOL HIV 1/2 ANTIBODY/ANTIGEN SCREEN W/REFLEX TO HIV 1/2 ANTIBODY DIFFERENTIATION STAT 02/13/2025 4:38 PM EDT HEPATITIS C ANTIBODY - ED W/REFLEX TO HCV QUANT PCR STAT 02/13/2025 4:38 PM EDT LIPASE, PLASMA STAT 02/13/2025 4:38 PM EDT COMPREHENSIVE METABOLIC PANEL, PLASMA STAT 02/13/2025 4:38 PM EDT TYPE AND SCREEN STAT 02/13/2025 4:38 PM EDT CBC WITH AUTO DIFFERENTIAL STAT 02/13/2025 4:[address] OUTSIDE IMAGES 02/13/2025 12: 16 PM EDT from Last 3 Months Results * FL ERC (03/31/2025 10:48 AM EDT) Only the most recent of2 resultswithin the time period is included. Narrative IMAGING - 03/31/2025 10:48 AM EDT Images were obtained for surgical purposes. See Soto Doe's surgical note in the patient's chart for the findings. Soto Doe IM FLUOROSCOPY PROCEDURES Final Result IMAGING * ERCP 1 - Grade 1 (03/31/2025 [...] Nicole CRNA, MD Anesthesiologist Jake Juares Endo Teleprinter Soto Doe Proceduralist Dieudonne Soares MD Proceduralist Moose Croft Endo Teleprinter Loli Vivar RN Endo Nurse Preprocedure A history and [...] Site Status Size Editing User Findings The deckhand clam dredge film showed clips in the right upper quadrant consistent with prior cholecystectomy and a biliary stent. The duodenoscope was passed under direct vision through the mouth and advanced to the second portion of the duodenum. The major papilla was non-[place]. The major papilla showed evidence of previous [...] and the procedure was thus ended. Soto Nader GI PROCEDURE ORDERABLES Final Re sult * ND AN ELECTIVE ENDOTRACHEAL AIRWAY, PB ANESTHESIA PLACEHOLDER (03/31/2025 9:18 AM EDT) Narrative Sohail Smith CRNA - 03/31/2025 9:18 AM EDT Sohail Smith CRNA 03/31/2025 9:22 AM Airway Date/Time: 03/31/2025 9:18 AM Reason: elective Airway not difficult General Information and Staff Patient location during procedure: OR FINANCIAL ASSISTANCE SPECIALIST: Sohail Smith CRNA Performed: FINANCIAL ASSISTANCE SPECIALIST Patient Condition Indications for airway management: anesthesia [...] Additional Comments Atraumatic. No change to dentition. Mejia Garcia MD ANESTHESIA ORDERABLES Final Re sult * (ABNORMAL) POCT glucose meter (03/31/2025 8:21 AM EDT) Only the most recent of17 resultswithin the time period is included. POCT Glucose 141(H) 74 - 99 mg/dL 03/31/2025 8:22 AM EDT [facility] Comment:Accuracy of a glucos e result [...] Comment 03/31/2025 8:22 AM EDT [facility] [place] ID Yuli Degroot [id number] 8:22 AM EDT HEALTHCARE LAB Device ID [id number] 03/31/2025 8:22 AM EDT HEALTHCARE LAB Specimen Type POC Capillary 03/31/2025 8:22 AM EDT [facility] Blood Capillary blood specimen / Unknown 03/31/2025 8:21 AM EDT 03/31/2025 8:22 AM EDT us Soto Doe LAB POINT OF CARE TE ST DOCKED DEVICE UNSOLICITED RESULTS Final Result Performing Organization Address City/[facility]/ZIP Co de Phone Number [facility] [address] [place] [address] * (ABNORMAL) Phosphorus (02/17/2025 9:38 AM EDT) Only the most recent of3 resultswithin the time period is included. Phosphorus, Plasma 1.8(L) 2.5 - 4.5 mg/dL 02/17/2025 10:48 AM EDT [facility] Blood Venous blood specimen / Unknown Venipuncture / Unknown 02/17/2025 9:38 AM EDT 02/17/2025 10:17 AM EDT us Eden Dasilva MD LAB BLOOD ORDERABLES Final Result [facility] [address] [place] [address] * (ABNORMAL) Comprehensive metabolic panel (02/17/2025 9:38 AM EDT) Only the most recent of5 resultswithin the time period is included. Glucose, Plasma 150(H) 74 - 99 mg/dL 02/17/2025 10:48 AM EDT [facility] BUN, Plasma 25(H) 8 - 23 mg/dL 02/17/2025 10:48 AM EDT [facility] Creatinine, Plasma 1.20 0.70 - 1.20 mg/dL 02/17/2025 10:48 AM EDT [facility] BUN/Creatinine Ratio 21 02/17/2025 10:48 AM EDT [facility] Sodium, Plasma 139 136 - 145 mmol/L 02/17/2025 10:48 AM EDT [facility] Potassium, Plasma 3.8 3.6 - 4.9 mmol/L 02/17/2025 10:48 AM EDT [facility] Chloride, Plasma 105 97 - 107 mmol/L 02/17/2025 10:48 AM EDT [facility] CO2, Plasma 24 22 - 29 mmol/L 02/17/2025 10:48 AM EDT [facility] Anion Gap 10 6 - 16 mmol/L 02/17/2025 10:48 AM EDT [facility] Total Calcium, Plasma 8.4(L) 8.9 - 10.2 mg/dL 02/17/2025 10:48 AM EDT [facility] Total Protein 6.1(L) 6.3 - 7.9 g/dL 02/17/2025 10:48 AM EDT [facility] Albumin, Plasma 3.3(L) 3.5 - 5.2 g/dL 02/17/2025 10:48 AM EDT [facility] AST, Plasma 31 10 - 50 U/L 02/17/2025 10:48 AM EDT [facility] ALT, Plasma 189(H) 10 - 50 U/L 02/17/2025 10:48 AM EDT [facility] Alkaline Phosphatase, Plasma 167(H) 40 - 115 U/L 02/17/2025 10:48 AM EDT [facility] Total Bilirubin, Plasma 2.5(H) 0.2 - 1.1 mg/dL 02/17/2025 10:48 AM EDT [facility] eGFRcr 68.4 mL/min/1.7 3m*2 02/17/2025 10:48 AM EDT [facility] Comment:Reported eGFRcr in m L/min/1.73m2 is based the CKD-EPI 2020 equation that does not use a race coefficient. Blood Venous blood specimen / Unknown Venipuncture / Unknown 02/17/2025 9:38 AM EDT 02/17/2025 10:17 AM EDT us Eden Dasilva MD LAB BLOOD ORDERABLES Final Result [facility] [address] [place] [address] * US Renal Complete (02/16/2025 9:28 PM EDT) Anatomical Region Laterality Modality Kidney Ultrasound Impressions 02/16/2025 9:53 PM EDT No visible renal stones. No hydronephrosis. CRITICAL RESULT: No. COMMUNICATION: Per this written report. Drafted by Paco Monte MD on 02/16/2025 9:52 PM Final report signed by Paco Monte MD on 02/16/2025 9:53 PM Narrative 02/16/2025 9:53 PM EDT CLINICAL INDICATION: Concern for renal stone TECHNIQUE: Multiplanar hernandez scale sonographic imaging of the kidneys. COMPARISON: None. FINDINGS: Right Kidney: The right kidney is normal in size and echogenicity measuring 11.6 cm. No hydronephrosis. No contour deforming masses. No obvious calculi. Left Kidney: The left kidney is normal in size and echogenicity measuring 10.9 cm. No hydronephrosis. No contour deforming masses. No obvious calculi. Bladder: Partially decompressed without obvious abnormality. Procedure Note Paco Monte MD - 02/16/2025 CLINICAL INDICATION: Concern for renal stone TECHNIQUE: Multiplanar hrenandez scale sonographic imaging of the kidneys. COMPARISON: None. FINDINGS: Right Kidney: The right kidney is normal in size and echogenicitymeasuring 11.6 cm. No hydronephrosis. No contour deforming masses. Noobvious calculi. Left Kidney: The left kidney is normal in size and echogenicity lklcewzak50.9 cm. No hydronephrosis. No contour deforming masses. No obviouscalculi. Bladder: Partially decompressed without obvious abnormality. IMPRESSION: No visible renal stones. No hydronephrosis. CRITICAL RESULT: No. COMMUNICATION: Per this written report. Drafted by Paco Monte MD on 02/16/2025 9:52 PM Final report signed by Paco Monte MD on 02/16/2025 9:53 PM Eden Dasilva MD IMG US PROCEDURES Final Res ult * XR Abdomen 1 View (02/16/2025 5:58 PM EDT) Anatomical Region Laterality Modality Body Digital Radiogra phy Impressions 02/16/2025 6:56 PM EDT Nonobstructive bowel gas pattern. Retained stool in the descending colon. CRITICAL RESULT: No. COMMUNICATION: Per this written report. Drafted by Paco Monte MD on 02/16/2025 6:50 PM Final report signed by Paco Monte MD on 02/16/2025 6:56 PM Narrative 02/16/2025 6:56 PM EDT CLINICAL INDICATION: evaluation for ileus and stool burden TECHNIQUE: Supine radiograph of the abdomen. COMPARISON: None. FINDINGS: The bowel gas pattern is nonobstructive. Retained stool in the ascending colon. Biliary stents and surgical clips in the right upper quadrant. Procedure Note Paco Monte MD - 02/16/2025 CLINICAL INDICATION: evaluation for ileus and stool burden TECHNIQUE: Supine radiograph of the abdomen. COMPARISON: None. FINDINGS: The bowel gas pattern is nonobstructive. Retained stool in the ascendingcolon. Biliary stents and surgical clips in the right upper quadrant. IMPRESSION: Nonobstructive bowel gas pattern. Retained stool in the descendingcolon. CRITICAL RESULT: No. COMMUNICATION: Per this written report. Drafted by Paco Monte MD on 02/16/2025 6:50 PM Final report signed by Paco Monte MD on 02/16/2025 6:56 PM us Eden Dasilva MD IMG XR PROCEDURES Final Res ult * (ABNORMAL) CBC W/O Differential (02/16/2025 12:38 AM EDT) Only the most recent of3 resultswithin the time period is included. WBC Count 6.73 3.70 - 10.30 10*3/uL LAB HEMATOLOGY METHOD 02/16/2025 1:06 AM EDT [facility] RBC Count 3.69(L) 4.60 - 6.10 10*6/uL LAB HEMATOLOGY METHOD 02/16/2025 1:06 AM EDT [facility] HGB 11.2(L) 13.7 - 17.5 g/dL LAB HEMATOLOGY METHOD 02/16/2025 1:06 AM EDT [facility] HCT 33.2(L) 40.0 - 51.0 % LAB HEMATOLOGY METHOD 02/16/2025 1:06 AM EDT [facility] Platelet Count 141(L) 155 - 369 10*3/uL LAB HEMATOLOGY METHOD 02/16/2025 1:06 AM EDT [facility] MCV 90 79 - 98 fL LAB HEMATOLOGY METHOD 02/16/2025 1:06 AM EDT [facility] MCH 30.4 26.0 - 32.0 pg LAB HEMATOLOGY METHOD 02/16/2025 1:06 AM EDT [facility] MCHC 33.7 30.7 - 35.5 g/dL LAB HEMATOLOGY METHOD 02/16/2025 1:06 AM EDT [facility] RDW 13.1 11.5 - 14.5 % LAB HEMATOLOGY METHOD 02/16/2025 1:06 AM EDT [facility] MPV 11.7 8.8 - 12.5 fL LAB HEMATOLOGY METHOD 02/16/2025 1:06 AM EDT [facility] nRBC 0.0 <=0.0 per 100 WBCs LAB HEMATOLOGY METHOD 02/16/2025 1:06 AM EDT [facility] Blood Venous blood specimen / Unknown Venipuncture / Unknown 02/16/2025 12:38 AM EDT 02/16/2025 12:46 AM EDT us Eden Dasilva MD LAB BLOOD ORDERABLES Final Result [facility] [address] [place] [address] * Magnesium, Plasma (02/16/2025 12:38 AM EDT) Only the most recent of2 resultswithin the time period is included. Magnesium, Plasma 2.4 1.9 - 2.4 mg/dL 02/16/2025 1:31 AM EDT [facility] Blood Venous blood specimen / Unknown Venipuncture / Unknown 02/16/2025 12:38 AM EDT 02/16/2025 12:46 AM EDT us Eden Dasilva MD LAB BLOOD ORDERABLES Final Result [facility] [address] [place] [address] * ERCP (02/15/2025 4:19 PM EDT) Anatomical Region Laterality Modality Endoscopy Narrative 02/15/2025 5:38 PM EDT Table formatting from the original result was not included. Impression EGD The esophagus appeared normal. The stomach appeared normal. Significant amount of retained food in the stomach, the FINANCIAL ASSISTANCE SPECIALIST was notified. The duodenum appeared normal. ERCP The cholangiogram showed a large filling defect in the proximal common hepatic duct with upstream dilation of the right and left intrahepatic. Multiple sweeps were performed in the common bile duct. Multiple stones, large amount of debris, and pus were removed. One 7 Fr x 7 cm double pigtail plastic stent was placed successfully in the common bile duct Post Procedure Diagnosis Cholangitis Recommendations Return to Floor Repeat ERCP in 5-6 weeks. Continue antibiotics to treat for cholangitis and complete at least 5 days. Restart previous diet tonight Findings and recommendations discussed with patient. Indication Elevated bilirubin, Common bile duct dilation Medications See anesthesia record for anesthesia administered medications. Staff Staff Role Sherry Camacho Endo Teleprinter Huyen Enamorado CRNA CRNA Ragland, Jon M, MD Anesthesiologist Don Ann RN Endo Nurse Soot Doe Proceduralist Dieudonne Soares MD Proceduralist Olena Anderson Endo Teleprinter Preprocedure A history and physical has been [...] apparent adverse events. Fluoroscopy was administered by Gastroenterology provider. Fluoroscopy was administered for 2 minutes and 10 seconds. Attestation I was present for the entire procedure Specimens No specimens were documented in this log. Implants Implants Implant Type Site Status Size Editing User STENT ZIMMON 7FR X 7CM - [id number] Bile Duct Implanted INTERFACE, SUPPLY USAGE IN Findings The deckhand clam dredge film showed clips in the right upper quadrant consistent with prior cholecystectomy. EGD The esophagus appeared normal. The stomach appeared normal. Significant amount of retained food in the stomach, the FINANCIAL ASSISTANCE SPECIALIST was notified. The duodenum appeared normal. ERCP The duodenoscope was passed under direct vision through the mouth and advanced to the second portion of the duodenum. The major papilla was non-peters[place]. The major papilla showed evidence of previous biliary sphincterotomy. The common bile duct was deeply cannulated using an extraction balloon with 270 cm x 0.025 straight guidewire. Cannulation was not difficult and no bleeding was observed A cholangiogram was performed using a balloon occlusion technique. I personally interpreted the bile duct images. Ductal flow of contrast was adequate. The cholangiogram showed a large filling defect in the proximal common hepatic duct with upstream dilation of the right and left intrahepatic. Multiple sweeps were performed in the common bile duct using a 11.5 mm balloon. Stones and pus were removed. One 7 Fr x 7 cm double pigtail plastic stent was placed successfully in the common bile duct The duodenoscope was withdrawn into the stomach. Fluid and air was suctioned from the stomach. Retroflexion was used to examine the cardia. The duodenoscope was withdrawn form the mouth and the procedure was thus ended. us Joe RED GI PROCEDURE ORDERABLES Final Result * ND AN ELECTIVE ENDOTRACHEAL AIRWAY, PB ANESTHESIA PLACEHOLDER (02/15/2025 3:31 PM EDT) Narrative Huyen Enamorado CRNA - 02/15/2025 3:31 PM EDT Huyen Enamorado CRNA 02/15/2025 3:45 PM Airway Date/Time: 02/15/2025 3:31 PM Reason: elective Airway not difficult General Information and Staff Patient location during procedure: [place] FINANCIAL ASSISTANCE SPECIALIST: Huyen Enamorado CRNA Performed: FINANCIAL ASSISTANCE SPECIALIST Patient Condition Indications for airway management: anesthesia Patient position: sniffing MILS maintained throughout Final Airway Details Final airway type: endotracheal airway Successful airway: ETT Cuffed: yes Successful intubation technique: video laryngoscopy Adjuncts used in placement: intubating stylet Endotracheal tube insertion site: oral Blade: Amber Blade size: #4 ETT size (mm): 8.0 Cormack-Lehane Classification: grade I - full view of glottis Placement verified by: chest auscultation and capnometry Inital cuff pressure (cm H2O): 6 Measured from: lips ETT to lips (cm): 22 Ventilation between attempts: none Additional Comments Atraumatic. No change to dentition. 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 Upstream intrahepatic biliary dilatation Nonobstructive choledocholithiasis. Hyperemia of anterior segments of the right hemiliver with multiple subcentimeter cholangitic abscesses. CRITICAL RESULT: No. COMMUNICATION: Per this written report. By electronically signing this report, I, the attending physician, attest that I have personally reviewed the images/data for the above examination(s) and agree with the final edited report. Drafted by Brian Albright MD on 02/15/2025 8:19 AM Final report signed by Anabella Mukherjee MD on 02/15/2025 1:25 PM Narrative 02/15/2025 1:25 PM EDT CLINICAL INDICATION: choledocholithiasis TECHNIQUE: MR imaging of the abdomen was performed with and without intravenous contrast material using the following sequences: coronal single shot T2 weighted fast spin echo, axial T2 weighted sequences with and without fat saturation, axial dual phase gradient echo, pre and dynamic postcontrast 3-D T1 weighted gradient echo with fat saturation (axial and coronal), and axial diffusion. Heavily T2-weighted 2D MRCP sequences were acquired. In addition, advanced 3D workstation manipulation and review of the data set was performed by the interpreting physician to further define anatomy and possible pathology. Images of areas of interest were created utilizing various techniques. These images were saved and transferred to PACS if significant. 10.6 mL of Gadavist was administered. COMPARISON: ERCP 04/25/2023 CT abdomen pelvis on 523 FINDINGS: Gallbladder: Gallbladder is absent. Biliary tree: Moderate to severe intrahepatic biliary ductal dilatation. Multiple filling defects near the confluence involving the right greater than left hepatic duct and proximal common hepatic duct. There is biliary epithelial thickening and smooth enhancement of the common hepatic duct (series 11 image 20) (series 28 image 45) likely reactive inflammatory/infectious. There is focal narrowing of the common hepatic duct just below the distal most stone and above the cystic duct junction for example on image 14 of series 3 corresponding to image 50-52 of series 27, 28. No extrahepatic ductal dilatation. The common bile duct measures 4 mm. There are 2 distinct intraluminal filling defects largest measuring 6 mm. No cystic duct dilatation. Pancreas: Normal signal intensity and enhancement of the pancreas. No pancreatic ductal dilatation. No suspicious pancreatic mass. Liver: Normal liver morphology. No significant fat or iron deposition. Subtle hyperenhancement of segment 5 and 8. Furthermore, there are multiple subcentimeter rim-enhancing cholangitic abscesses primarily centered within segment 8 (series 27 image 25). Spleen: Spleen is mildly enlarged measuring 13.6 cm. No splenic lesions. Adrenal Glands: No adrenal nodules. Kidneys: Normal and symmetric enhancement of the bilateral kidneys. Few punctate renal cysts. No suspicious renal lesions. No hydronephrosis. Fluid Survey: No ascites. Vasculature: The abdominal aorta is patent and normal in caliber. IVC, hepatic veins, and portal vein are patent. Lymph Nodes: No adenopathy. Musculoskeletal: No acute or aggressive lesions. Miscellaneous: Trace pleural effusions. Lower lung atelectasis. Procedure Note Anabella Mukherjee MD - 02/15/2025 CLINICAL INDICATION: choledocholithiasis TECHNIQUE: MR imaging of the abdomen was performed with and without intravenouscontrast material using the following sequences: coronal single shot [id number] fast spin echo, axial T2 weighted sequences with and without fatsaturation, axial dual phase gradient echo, pre and dynamic postcontrast3-D T1 weighted gradient echo with fat saturation (axial and coronal), andaxial diffusion. Heavily T2-weighted 2D MRCP sequences were acquired. Inaddition, advanced 3D workstation manipulation and review of the data setwas performed by the interpreting physician to further define anatomy andpossible pathology. Images of areas of interest were created utilizingvarious techniques. These images were saved and transferred to PACS ifsignificant. 10.6 mL of Gadavist was administered. COMPARISON: ERCP 04/25/2023 CT abdomen pelvis on 523 FINDINGS: Gallbladder: Gallbladder is absent. Biliary tree: Moderate to severe intrahepatic biliary ductal dilatation.Multiple filling defects near the confluence involving the right greaterthan left hepatic duct and proximal common hepatic duct. There is biliaryepithelial thickening and smooth enhancement of the common hepatic duct(series 11 image 20) (series 28 image 45) likely reactiveinflammatory/infectious. There is focal narrowing of the common hepaticduct just below the distal most stone and above the cystic duct junctionfor example on image 14 of series 3 corresponding to image 50-52 of sosglj11, 28. No extrahepatic ductal dilatation. The common bile duct measures 4mm. There are 2 distinct intraluminal filling defects largest measuring 6mm. No cystic duct dilatation. Pancreas: Normal signal intensity and enhancement of the pancreas. Nopancreatic ductal dilatation. No suspicious pancreatic mass. Liver: Normal liver morphology. No significant fat or iron deposition.Subtle hyperenhancement of segment 5 and 8. Furthermore, there aremultiple subcentimeter rim-enhancing cholangitic abscesses primarilycentered within segment 8 (series 27 image 25). Spleen: Spleen is mildly enlarged measuring 13.6 cm. No splenic lesions. Adrenal Glands: No adrenal nodules. Kidneys: Normal and symmetric enhancement of the bilateral kidneys. Fewpunctate renal cysts. No suspicious renal lesions. No hydronephrosis. Fluid Survey: No ascites. Vasculature: The abdominal aorta is patent and normal in caliber. IVC,hepatic veins, and portal vein are patent. Lymph Nodes: No adenopathy. Musculoskeletal: No acute or aggressive lesions. Miscellaneous: Trace pleural effusions. Lower lung atelectasis. IMPRESSION: Overall imaging features are most suggestive of sequelae of recurrentcholangitis with intrahepatic lithiasis as well as likely a stricture atthe common hepatic duct just above the cystic duct insertion. Upstreamintrahepatic biliary dilatation Nonobstructive choledocholithiasis. Hyperemia of anterior segments of the right hemiliver with multiplesubcentimeter cholangitic abscesses. CRITICAL RESULT: No. COMMUNICATION: Per this written report. By electronically signing this report, I, the attending physician, attestthat I have personally reviewed the images/data for the aboveexamination(s) and agree with the final edited report. Drafted by Brian Albright MD on 02/15/2025 8:19 AM Final report signed by Anabella Mukherjee MD on 02/15/2025 1:25 PM us Eden Dasilva MD IMG MRI PROCEDURES Final Re sult * Urine Hernandez Panel (02/14/2025 4:10 PM EDT) Extra Reflex urine culture not indicated 02/14/2025 6:01 PM EDT [facility] Urine Urine specimen obtained by clean catch procedure / Unknown Non-blood Collection / Unknown 02/14/2025 4:10 PM EDT 02/14/2025 4:35 PM EDT us Eden Dasilva MD LAB URINE ORDERABLES Final Result Performing Organization Address [facility] de Phone Number [facility] [address] [place] [address] * Urinalysis Microscopic Examination (02/14/2025 4:10 PM EDT) Urine Urine specimen obtained by clean catch procedure / Unknown Non-blood Collection / Unknown 02/14/2025 4:10 PM EDT 02/14/2025 4:35 PM EDT us Eden Dasilva MD LAB URINE ORDERABLES Final Result Performing Organization Address [facility] Co de Phone Number [facility] [address] [place] [address] * (ABNORMAL) Urinalysis with reflex microscopic (Culture NOT Included) (02/14/2025 4:10 PM EDT) Color, Urine Dark Yellow LAB URINALYSIS - AUTOMATED METHOD 02/14/2025 5:44 PM EDT [facility] Clarity, Urine Cloudy LAB URINALYSIS - AUTOMATED METHOD 02/14/2025 5:44 PM EDT [facility] Spec [place], Urine >1.030(H) 1.005 - 1.030 LAB URINALYSIS - AUTOMATED METHOD 02/14/2025 5:44 PM EDT [facility] pH, Urine 5.5 5.0 - 8.0 LAB URINALYSIS - AUTOMATED METHOD 02/14/2025 5:44 PM EDT [facility] Protein, Urine 30(A) Negative mg/dL LAB URINALYSIS - AUTOMATED METHOD 02/14/2025 5:44 PM EDT [facility] Glucose, Urine Negative Negative mg/dL LAB URINALYSIS - AUTOMATED METHOD 02/14/2025 5:44 PM EDT [facility] Ketones, Urine 15(A) Negative mg/dL LAB URINALYSIS - AUTOMATED METHOD 02/14/2025 5:44 PM EDT [facility] Blood, Urine Negative Negative LAB URINALYSIS - AUTOMATED METHOD 02/14/2025 5:44 PM EDT [facility] Bilirubin, Urine Moderate(A) Negative LAB URINALYSIS - AUTOMATED METHOD 02/14/2025 5:44 PM EDT [facility] Urobilinogen, Urine 1.0 0.2 to 1.0 mg/dL LAB URINALYSIS - AUTOMATED METHOD 02/14/2025 5:44 PM EDT [facility] Leukocytes, Urine Trace(A) Negative LAB URINALYSIS - AUTOMATED METHOD 02/14/2025 5:44 PM EDT [facility] Nitrite, Urine Positive(A) Negative LAB URINALYSIS - AUTOMATED METHOD 02/14/2025 5:44 PM EDT [facility] RBC, Urine 1 0 to 3 /HPF LAB URINALYSIS - AUTOMATED METHOD 02/14/2025 5:44 PM EDT [facility] Comment:This result was prev iously suppressed from the chart. WBC, Urine 0 - 5 0 to 5 /HPF LAB URINALYSIS - AUTOMATED METHOD 02/14/2025 5:44 PM EDT [facility] Comment:This result was prev iously suppressed from the chart. Squamous Epithelial Cells 6 - 10(A) 0 to 5 /HPF LAB URINALYSIS - AUTOMATED METHOD 02/14/2025 5:44 PM EDT [facility] Comment:This result was prev iously suppressed from the chart. Hyaline Casts 0 - 2 0 to 5 /LPF LAB URINALYSIS - AUTOMATED METHOD 02/14/2025 5:44 PM EDT [facility] Comment:This result was prev iously suppressed from the chart. Bacteria, Urine Negative Negative LAB URINALYSIS - AUTOMATED METHOD 02/14/2025 5:44 PM EDT [facility] Comment: Verified by manual microscopic. Specimen color or other interfering substances may cause false positive nitrite. This result was previously suppressed from the chart. Renal Tubular Cells Present Absent 02/14/2025 5:44 PM EDT [facility] Comment:This result was prev iously suppressed from the chart. Granular Casts Present Absent LAB URINALYSIS - AUTOMATED METHOD 02/14/2025 5:44 PM EDT [facility] Comment:This result was prev iously suppressed from the chart. Urine Urine specimen obtained by clean catch procedure / Unknown Non-blood Collection / Unknown 02/14/2025 4:10 PM EDT 02/14/2025 4:35 PM EDT Narrative [facility] - 02/14/2025 5:44 PM EDT Performed by manual method us Eden Dasilva MD LAB URINE ORDERABLES Final Result [facility] [address] [place] [address] * XR Chest 1 View (02/14/2025 3:56 PM EDT) Anatomical Region Laterality Modality Chest Digital Radiogra phy Impressions 02/14/2025 4:27 PM EDT Low lung volumes with likely small bibasilar atelectasis. . CRITICAL RESULT: No COMMUNICATION: Per this written report. Drafted by Paco Monte MD on 02/14/2025 4:27 PM Final report signed by Paco Monte MD on 02/14/2025 4:27 PM Narrative 02/14/2025 4:27 PM EDT CLINICAL INDICATION: hypoxia TECHNIQUE: XR CHEST 1 VIEW COMPARISON: 01/15/2023 FINDINGS: The cardiomediastinal silhouette is stable. Low lung volumes with likely small bibasilar atelectasis. The lungs are otherwise clear focal consolidation or pleural effusion. No pneumothorax. The visualized osseous structures are intact. Degenerative change in the spine. Procedure Note Paco Monte MD - 02/14/2025 CLINICAL INDICATION: hypoxia TECHNIQUE: XR CHEST 1 VIEW COMPARISON: 01/15/2023 FINDINGS: The cardiomediastinal silhouette is stable. Low lung volumes with likelysmall bibasilar atelectasis. The lungs are otherwise clear focalconsolidation or pleural effusion. No pneumothorax. The visualized osseousstructures are intact. Degenerative change in the spine. IMPRESSION: Low lung volumes with likely small bibasilar atelectasis. . CRITICAL RESULT: No COMMUNICATION: Per this written report. Drafted by Paco Monte MD on 02/14/2025 4:27 PM Final report signed by Paco Monte MD on 02/14/2025 4:27 PM us Eden Dasilva MD IMG XR PROCEDURES Final Res ult * (ABNORMAL) N-Terminal Probnp (02/14/2025 2:47 PM EDT) N-Terminal, PROBNP, Plasma 1,526(H) 0 - 899 pg/mL 02/14/2025 3:32 PM EDT [facility] Blood Venous blood specimen / Unknown Venipuncture / Unknown 02/14/2025 2:47 PM EDT 02/14/2025 3:04 PM EDT us Eden Dasilva MD LAB BLOOD ORDERABLES Final Result [facility] [address] [place] [address] * Lactate, venous (02/14/2025 3:09 AM EDT) Only the most recent of3 resultswithin the time period is included. Lactate, Venous, Whole Blood 1.7 0.5 - 2.2 mmol/L LAB HEMATOLOGY METHOD 02/14/2025 3:23 AM EDT [facility] Blood Venous blood specimen / Unknown Venipuncture / Unknown 02/14/2025 3:09 AM EDT 02/14/2025 3:13 AM EDT us Eden Dasilva MD LAB BLOOD ORDERABLES Final Result Performing Organization Address [facility] Co de Phone Number [facility] [address] [place] [address] * (ABNORMAL) PT/INR (02/14/2025 3:09 AM EDT) Only the most recent of2 resultswithin the time period is included. Pathologist [facility] Prothrombin Time 16.7(H) 12.0 - 14.3 sec 02/14/2025 3:33 AM EDT [facility] INR 1.4(H) 0.9 - 1.1 02/14/2025 3:33 AM EDT [facility] Blood Venous blood specimen / Unknown Venipuncture / Unknown 02/14/2025 3:09 AM EDT 02/14/2025 3:17 AM EDT Narrative [facility] - 02/14/2025 3:33 AM EDT OPTIMAL INR RANGES FOR PATIENT ON ORAL ANTICOAGULANT THERAPY Prevention of venous thromboembolism INR 2.0 to 3.0 In patients with heart disease: Atrial fibrillation INR 2.0 to 3.0 Valvular heart disease INR 2.0 to 3.0 Tissue heart valves INR 2.0 to 3.0 Mechanical prosthetic valves INR 2.5 to 3.5 Prevention of recurrent KS INR 2.5 to 3.5 us Eden Dasilva MD LAB BLOOD ORDERABLES Final Result Performing Organization Address City/[facility]/ZIP Co de Phone Number [facility] [address] [place] [address] * (ABNORMAL) Hemoglobin A1c (02/14/2025 3:09 AM EDT) Hemoglobin A1c 7.2(H) <5.7 % 02/14/2025 11:48 AM EDT [facility] Blood Venous blood specimen / Unknown Venipuncture / Unknown 02/14/2025 3:09 AM EDT 02/14/2025 3:29 AM EDT Narrative [facility] - 02/14/2025 11:48 AM EDT HA1C Interpretive Data: Diagnosis of Diabetes: Diabetic > or = 6.5% Pre-diabetic 5.7 to 6.4% Non-diabetic < or = 5.6% Glycemic Targets for Type I and Type II Diabetics: Non- Adults <7.0% Adults <6.0% Children and Adolescents <7.5% Source: [place] [employer]. Standards of medical care in diabetes,2017. Diabetes Care.2017:40 (suppl 1):S1-S135. us Eden Dasilva MD LAB BLOOD ORDERABLES Final Result [facility] [address] [place] [address] * (ABNORMAL) Lipid panel (02/14/2025 3:09 AM EDT) Cholesterol, Plasma 104 <200 mg/dL 02/14/2025 3:57 AM EDT [facility] Comment: Cholesterol Reference Range (age >17 years): Desirable <200 mg/dL Borderline 200 to 239 mg/dL Undesirable >239 mg/dL HDL 28(L) >=40 mg/dL 02/14/2025 3:57 AM EDT [facility] Comment: HDL Cholesterol Reference Ranges (age >17 years): Female, acceptable > or = 50 mg/dL Male, acceptable > or = 40 mg/dL Triglycerides, Plasma 145 <150 mg/dL 02/14/2025 3:57 AM EDT [facility] Comment: Triglyceride Reference Range (age >17 years): Desirable: <150 mg/dL Borderline high: 150 to 199 mg/dL High: 200 to 499 mg/dL Very high: >499 mg/dL Increased risk of pancreatitis: >1000 mg/dL Cholesterol/HDL Ratio 4 02/14/2025 3:57 AM EDT [facility] LDL, Calculated 51 <100 mg/dL 3:57 AM EDT [facility] Comment: LDL Cholesterol Reference Range (age >17 years): Optimal: <100 mg/dL Near or above optimal: 100 - 129 mg/dL Borderline high: 130 - 159 mg/dL High: 160 - 189 mg/dL Very high: >189 mg/dL LDL Cholesterol Reference Range (age <18 years): Desirable: <110 mg/dL Borderline: 110 - 129 mg/dL Undesirable: >130 mg/dL LDL Cholesterol is calculated using the Du/NIH equation. Fasting greater than or equal to 12 hours? Yes 02/14/2025 3:57 AM EDT [facility] Blood Venous blood specimen / Unknown Venipuncture / Unknown 02/14/2025 3:09 AM EDT 02/14/2025 3:29 AM EDT Eden Dasilva MD LAB BLOOD ORDERABLES Final Result Performing Organization Address City/[facility] Co de Phone Number [facility] [address] [place] [address] * Blood Culture (Aerobic/Anaerobet Set) (02/13/2025 8:13 PM EDT) Pathologist [facility] Culture No growth at day 5 02/18/2025 10:01 PM EDT [facility] Blood Venous blood specimen / Unknown Venipuncture / Unknown 02/13/2025 8:13 PM EDT 02/13/2025 9:00 PM EDT Eden Dasilva MD LAB MICROBIOLOGY - GENERAL ORDERABLES Final Result Performing Organization Address City/[facility]/ZIP Co de Phone Number [facility] [address] [place] [address] * ECG Adult (02/13/2025 7:51 PM EDT) EKG DIAGNOSIS CLASS Abnormal MUSE ECG Ventricular Rate 95 BPM MUSE ECG Atrial Rate 95 BPM MUSE ECG ND Interval 190 ms MUSE ECG QRSD Interval 102 ms MUSE ECG QT Interval 342 ms MUSE ECG QTC Interval 429 ms MUSE ECG P [place] 52 degrees MUSE ECG R [place] 44 degrees MUSE ECG T Wave [place] 39 degrees MUSE ECG Diagnosis Normal sinus rhythm MUSE ECG Diagnosis Poor R-wave progression ; consider anterior infarct, lead placement, or normal variant MUSE ECG Diagnosis Nonspecific T wave abnormality MUSE ECG Diagnosis MUSE ECG Diagnosis Abnormal ECG MUSE ECG Diagnosis MUSE ECG Diagnosis Confirmed by Wally Hargrove ([id number]) on 02/14/2025 7:03:31 PM MUSE ECG 02/13/2025 7:51 PM EDT 02/14/2025 7:03 PM EDT us Eden Dasilva MD ECG ORDERABLES Final Resul t MUSE ECG * ED HIV 1/2 Antibody/Antigen Screen w/Reflex to HIV 1/2 Differentiation (02/13/2025 4:38 PM EDT) HIV 1 & 2 Antibody/Antigen Screen Non Reactive Non Reactive 02/13/2025 5:29 PM EDT [facility] Comment:Screening for HIV 1 & 2 antibodies, and P24 antigen is NONREACTIVE. No confirmatory testing is required. Blood Venous blood specimen / Unknown Venipuncture / Unknown 02/13/2025 4:38 PM EDT 02/13/2025 4:49 PM EDT us Osei Verdin MD LAB BLOOD ORDERABLES Final Resul t [facility] [address] [place] [address] * Light Green Top (02/13/2025 4:38 PM EDT) Extra Hold for add-ons 02/13/2025 7:01 PM EDT [facility] Comment:Auto resulted. Blood Venous blood specimen / Unknown 02/13/2025 4:38 PM EDT 02/13/2025 4:43 PM EDT us Osei Verdin MD LAB BLOOD ORDERABLES Final Resul t Performing Organization Address City/[facility]/ZIP Co de Phone Number [facility] [address] [place] [address] * Hepatitis C Antibody - ED (02/13/2025 4:38 PM EDT) Pathologist [facility] Hepatitis C Antibody Negative Negative 02/13/2025 5:29 PM EDT [facility] Blood Venous blood specimen / Unknown Venipuncture / Unknown 02/13/2025 4:38 PM EDT 02/13/2025 4:49 PM EDT Osei Verdin MD LAB BLOOD ORDERABLES Final Resul t Performing Organization Address City/[facility]/ZIP Co de Phone Number [facility] [address] [place] [address] * (ABNORMAL) CBC w/diff (02/13/2025 4:38 PM EDT) [facility] WBC Count 24.88(H) 3.70 - 10.30 10*3/uL LAB HEMATOLOGY METHOD 02/13/2025 5:42 PM EDT [facility] RBC Count 4.19(L) 4.60 - 6.10 10*6/uL LAB HEMATOLOGY METHOD 02/13/2025 5:42 PM EDT [facility] HGB 12.7(L) 13.7 - 17.5 g/dL LAB HEMATOLOGY METHOD 02/13/2025 5:42 PM EDT [facility] HCT 36.7(L) 40.0 - 51.0 % LAB HEMATOLOGY METHOD 02/13/2025 5:42 PM EDT [facility] Platelet Count 208 155 - 369 10*3/uL LAB HEMATOLOGY METHOD 02/13/2025 5:42 PM EDT [facility] MCV 88 79 - 98 fL LAB HEMATOLOGY METHOD 02/13/2025 5:42 PM EDT [facility] MCH 30.3 26.0 - 32.0 pg LAB HEMATOLOGY METHOD 02/13/2025 5:42 PM EDT [facility] MCHC 34.6 30.7 - 35.5 g/dL LAB HEMATOLOGY METHOD 02/13/2025 5:42 PM EDT [facility] RDW 12.7 11.5 - 14.5 % LAB HEMATOLOGY METHOD 02/13/2025 5:42 PM EDT [facility] MPV 10.4 8.8 - 12.5 fL LAB HEMATOLOGY METHOD 02/13/2025 5:42 PM EDT [facility] nRBC 0.0 <=0.0 per 100 WBCs LAB HEMATOLOGY METHOD 02/13/2025 5:42 PM EDT [facility] Differential Type Automated LAB HEMATOLOGY METHOD 02/13/2025 5:42 PM EDT [facility] Neutrophils % 93 % LAB HEMATOLOGY METHOD 02/13/2025 5:42 PM EDT [facility] Lymphocytes % 1 % LAB HEMATOLOGY METHOD 02/13/2025 5:42 PM EDT [facility] Monocytes % 5 % LAB HEMATOLOGY METHOD 02/13/2025 5:42 PM EDT [facility] Eosinophils % 0 % LAB HEMATOLOGY METHOD 02/13/2025 5:42 PM EDT [facility] Basophils % 0 % LAB HEMATOLOGY METHOD 02/13/2025 5:42 PM EDT [facility] Immature Granulocytes % 1 % LAB HEMATOLOGY METHOD 02/13/2025 5:42 PM EDT [facility] Neutrophils Absolute 23.06(H) 1.60 - 6.10 10*3/uL LAB HEMATOLOGY METHOD 02/13/2025 5:42 PM EDT [facility] Lymphocytes Absolute 0.27(L) 1.20 - 3.90 10*3/uL LAB HEMATOLOGY METHOD 02/13/2025 5:42 PM EDT [facility] Monocytes Absolute 1.15(H) 0.30 - 0.90 10*3/uL LAB HEMATOLOGY METHOD 02/13/2025 5:42 PM EDT [facility] Eosinophils Absolute 0.00 0.00 - 0.50 10*3/uL LAB HEMATOLOGY METHOD 02/13/2025 5:42 PM EDT [facility] Basophils Absolute 0.09 0.00 - 0.10 10*3/uL LAB HEMATOLOGY METHOD 02/13/2025 5:42 PM EDT [facility] Immature Granulocytes Absolute 0.31(H) 0.00 - 0.06 10*3/uL LAB HEMATOLOGY METHOD 02/13/2025 5:42 PM EDT [facility] Blood Venous blood specimen / Unknown Venipuncture / Unknown 02/13/2025 4:38 PM EDT 02/13/2025 4:42 PM EDT Narrative [facility] - 02/13/2025 5:42 PM EDT Therapeutic decision making should be based on absolute values, rather than percentages. us Osei Verdin MD LAB BLOOD ORDERABLES Final Resul t Performing Organization Address [facility]/ZIP Co de Phone Number [facility] [address] [place] [address] * Type and screen (02/13/2025 4:38 PM EDT) ABO/Rh O Negative 02/13/2025 4:34 PM EDT BLOOD BANK Antibody Screen Negative 02/13/2025 4:34 PM EDT BLOOD BANK Specimen Expiration 02/16/2025 23:59 02/13/2025 4:34 PM EDT BLOOD BANK Blood Venous blood specimen / Unknown Venipuncture / Unknown 02/13/2025 4:38 PM EDT 02/13/2025 4:43 PM EDT us Osei Verdin MD LAB BLOOD BANK TEST ORDERABLES F inal Result Performing Organization Address [facility] de Phone Number BLOOD BANK [address] [place] [address], * (ABNORMAL) Lipase (02/13/2025 4:38 PM EDT) Lipase, Plasma 12(L) 19 - 63 U/L 02/13/2025 5:43 PM EDT [facility] Blood Venous blood specimen / Unknown Venipuncture / Unknown 02/13/2025 4:38 PM EDT 02/13/2025 4:42 PM EDT us Osei Verdni MD LAB BLOOD ORDERABLES Final Resul t Performing Organization Address [facility] Co de Phone Number [facility] [address] [place] [address] * CT OUTSIDE IMAGES (02/13/2025 12:16 PM EDT) Anatomical Region Laterality Modality Computed Tomogra phy 02/13/2025 12:1 6 PM EDT Lilia Mai DO IMG CT PROCEDURES Final Result from Last 3 Months Insurance [employer] Advance Directives * Full Code (Latest Code Status on File) Date Activated Date Inactivated Comments 02/13/2025 7:47 PM 02/17/2025 4:58 PM Question Answer Comments I have reviewed the capacity from the link above and, if needed, have updated to appropriate status: Yes * Full Code Date Activated Date Inactivated Comments 01/15/2023 6:37 PM 01/21/2023 5:02 PM Question Answer Comments Patient has decision-making capacity? Yes Care Teams Hearing And Speech Assistant Relationship Specialty Start Date End Date System, Provider Not In, [place] [address] PCP - General Family Medicine 02/21/25
--- OUTSIDE RECORDS SUMMARY | 2025-04-19 01:32 | XMS_ITS | Clinical Summary ---
Author Organization [facility] Address [address] [place] [address] Care Team Providers Care Toolmaker Helper Name Role Phone Mikie Mata Primary Care Provider [phone] Allergies Active Allergy Reactions Criticality Noted Date [...] urgency 05/16/2021 021 Chest pain 05/15/2021 05/16/2021 Encounters Date Type Department Care Team Description 04/07/2025 Refill [facility] [address] [place] [phone] Mikie Mata DO Essential hypertension; Hypertension; Hypertension, unspecified type 02/18/2025 Transitional Care Management Telephone Encounter [facility] [address] [place] [address] Saige Booth, RN 02/17/2025 Readmission Management [facility] [address] [place] [address] Jess Ludwig, RN from Last 3 Months Immunizations Immunization Administration Dates Next Due COVID-19 [...] Grandmother Relation Name Status Comments Brother Timothy Viera Alive Father Oren Viera Maternal Grandfather Maternal [...] 2007 DIABETIC EYE EXAM 11/03/2018 11/03/2017 (Declined) URINE MICROALBUMIN-CREATININ E RATIO (uACR) 11/03/2018 11/03/2017 COLONOSCOPY 02/23/2024 09/07/2010, 07/14/2010 COLORECTAL CANCER SCREENING 06/01/2024 INFLUENZA VACCINE 02/11/2025 05/05/2023, , 07/10/2022, Additional history exists ANNUAL PHYSICAL 02/24/2025 02/25/2024 DIABETIC FOOT EXAM 02/24/2025 02/25/2024, 0 12/25/2018, 12/25/2018, Additional history exists HEMOGLOBIN A1C 08/17/2025 02/14/2025, 08/0 10/2024, 02/25/2024, Additional history exists LIPID PANEL 02/14/2026 02/14/2025, 08/0 10/2024, 09/05/2023, Additional history exists COLOGUARD 05/31/2027 05/31/2024, 02/11, 02/21/2021 ZOSTER VACCINE Completed 08/10/2021, 05/08/2021 Pneumococcal Vaccine 50+ Completed 02/25/2024, 072 HEPATITIS C SCREENING Completed 02/13/2025 , 01/15/2023, 11/03/2017, Additional history exists Procedures Procedure Name Priority Date/Time Associated Diagnosis [...] EDT Need for hepatitis C screening test COLONOSCOPY Routine 09/07/2010 from Last 3 Months or Most Recently Relevant to Health Maintenance Results * Cologuard - Stool, Per Rectum (05/31/2024 4:50 PM EST) Cologuard Negative Negative 06/09/2024 9:10 AM EST [facility] (CLIA #:[id number]) Comment: NEGATIVE TEST RESULT. A negative Cologuard [...] screened with both Cologuard and colonoscopy. (Linda T. et al, N Engl J Med 2014;370(14):9917-4955) The normal value (reference range) for this assay is negative. COLOGUARD RE-SCREENING RECOMMENDATION: Periodic colorectal cancer screening is an important part of preventive healthcare for asymptomatic individuals at average risk for colorectal cancer. Following a negative Cologuard result, the [employer] [place] [employer] and U.S. Multi-Society Task Force screening guidelines recommend a Cologuard re-screening interval of 3 years. References: [employer] Guideline for Colorectal Cancer Screening: https://www.cancer.org/cancer/sdrsw-xeotqi-tfkqwf/tmrrsjnps-ngmcxtgrq-pexwloo/ac s-rec ommendations.html.; Alek AYON, Alisha KATHLEEN, Cleopatra SHIELDS, Colorectal Cancer Screening: Recommendations for Physicians and Patients from the U.S. Multi-Society Task Force on Colorectal Cancer Screening , Am J Gastroenterology 2017; 112:2621-0461. TEST DESCRIPTION: Composite algorithmic analysis of stool [...] screened with both Cologuard and colonoscopy. (Linda Portillo. et al, N Engl J Med 2014;370(14):5238-4843.) Cologuard may produce a false negative or false positive result (no colorectal cancer or precancerous polyp present at colonoscopy follow up). A negative Cologuard test result does not guarantee the absence of CRC or advanced adenoma (pre-cancer). The current Cologuard screening interval is every 3 years. ([employer] and U.S. Multi-Society Task Force). Cologuard performance data in a 10,000 patient pivotal study using colonoscopy as the reference method can be accessed at the following location: www.[employer]um[employer]/results. Additional description of the Cologuard test process, warnings and precautions can be found at www.[employer].com. Stool specimen (specimen) Specimen from rectum / Unknown 05/31/2024 4:50 PM EST 06/02/2024 9:27 AM EST us Mikie Mata DO BODY FLUIDS AND STOOLS ORDERABLE S Final Result [facility] (CLIA #:[id number]) [address] [id number], * SCANNED - INFLUENZA (07/10/2022) Mikie Mata DO CHART REVIEW TABS Final Resul t * Hepatitis C Antibody (11/03/2017 9:53 AM EDT) Hepatitis C Ab Non-Reacti ve Non-Reacti ve 11/03/2017 3:30 PM EDT [facility] Blood Left upper arm structure / Unknown Venipuncture / Unknown 11/03/2017 9:53 AM EDT 11/03/2017 9:53 AM EDT Lars Arciniega MD LAB BLOOD ORDERABLES Final Re sult [facility]
[address] [place] [address], * HM COLONOSCOPY (09/07/2010) Colonoscopy 09/07/2010 repeat 5-10 yrs [facility] Provider HEALTH MAINTENANCE Final Result from Last 3 Months or Most Recently Relevant to Health Maintenance Insurance EMPLOYEE Advance Directives * CPR (Attempt to Resuscitate) (Latest Code Status on File) Date Activated Date Inactivated Comments 05/15/2021 6:33 PM 05/16/2021 7:49 PM Question Answer Comments Code Status (Patient has no pulse and is not breathing): CPR (Attempt to Resuscitate) Medical Interventions (Patie nt has pulse or is breathing): Full Support Level Of Support Discussed With: Patient Care Teams Toolmaker Helper Relationship Specialty Start Date End Date Mikie Mata DO [address] [place] [address] PCP - General Family Medicine 01/30/21
--- OUTSIDE RECORDS SUMMARY | 2025-04-19 01:32 | XMS_ITS ---
Author Organization [facility] Address [address] [place] [address] Care Team Providers Care Manager Specialty Name Role Phone System, Provider Not In MD Primary Care Provider Unavailable Transitional Care Management Status:Closed (Closed) Start date:02/18/2025 Enrollment date:02/21/2025 Enrollment reason:Identified using hospital discharge data End date:03/20/2025 Close reason:Patient graduated Overview This episode type is for outpatient care managers enrolling patients in the [facility] Transitional Care Management program. Continued Care and Services Coordination
== END 2025-04-18 23:59 ==
LOC: LAB.DROPOF 04-19 01:26
PROVIDERS: PCP Nurse Practitioner Family; Visit Provider Nurse Practitioner Family
DX: K80.50 Calculus of bile duct without cholangitis or cholecystitis without obstruction (principal); E11.9 Type 2 diabetes mellitus without complications
CPT/HCPCS: 80053; 83036; 85025